=== PATIENT | female | born 1965 | race Caucasian/White ===

== ENCOUNTER 2017-10-22 09:09 | Emergency (ER) | payer OTHER ==
[2017-10-22 09:23] VITALS: BP 96/88
--- NOTE | 2017-10-22 10:06 | UC ---
Throat Pain/Nasal Ton HPI - HPI Summary HPI Summary: 52 y/o female PMHX DM type II presents to the urgent care c/o RT ear pain and RT kjaw pain with mild swelling that has worsen for the past 2 weeks 2016. Pt reports symptoms have worsen for the pst 2 days. Mild fever. She took Advil 800mg PO. Pain is 8/10 with swallowing and associated with decrease hearing. Pt denies cough, SOB, chest pain N/V/D, abdominal pain. - History of Current Complaint Chief Complaint: UCGeneralIllness Stated Complaint: SORE THROAT EAR PAIN Time Seen by Provider: 10/22/17 09:46 Hx Obtained From: Patient Hx Last Menstrual Period: 10/04/17 ?: No Onset/Duration: Gradual Onset, Lasting Weeks - 2 weeks, Still Present, Worse Since - 2 days ago Severity: Moderate Pain Intensity: 8 Pain Scale Used: 0-10 Numeric Cough: None Associated Signs & Symptoms: Positive: Other - Rt ear pain and RT side jaw pain. Negative: Sinus Discomfort, Nasal Discharge - Epiglottits Risk Factors Epiglottis Risk Factors: Negative - Allergies/Home Medications Allergies/Adverse Reactions: Allergies Allergy/AdvReac Type Severity Reaction Status Date / Time No Known Allergies Allergy Verified 10/22/17 09:24 PMH/Surg Hx/FS Hx/Imm Hx Previously Healthy: Yes Endocrine History: Diabetes Neurological History: Migraine Psychological History: Depression Other Cancer History: Skib cancer - Surgical History Surgical History: None - Family History Known Family History: Positive: Diabetes Family History: Breast cancer - Social History Occupation: Employed Full-time Lives: With Family Alcohol Use: None Substance Use Type: None Smoking Status (MU): Never Smoked Tobacco - Immunization History Most Recent Influenza Vaccination: 08/2017 Review of Systems Constitutional: Fever - subjective at home Skin: Negative Eyes: Negative ENT: Sore Throat, Ear Ache - RT ear pain, Other - RT jaw pain Respiratory: Negative Cardiovascular: Negative Gastrointestinal: Negative Genitourinary: Negative Motor: Negative Neurovascular: Negative Musculoskeletal: Negative Neurological: Negative Psychological: Negative Is Patient Immunocompromised?: No All Other Systems Reviewed And Are Negative: Yes Physical Exam Triage Information Reviewed: Yes Vital Signs: Initial Vital Signs Temp 98.9 F 10/22/17 09:19 Pulse 82 10/22/17 09:19 Resp 16 10/22/17 09:19 BP 96/88 10/22/17 09:19 Pulse Ox 98 10/22/17 09:19 - Additional Comments VITAL SIGNS: Reviewed. GENERAL: Patient is a well developed and nourished obese female who is sitting comfortable in the examining table. Patient is not in any acute respiratory distress. HEAD AND FACE: No signs of trauma. No ecchymosis, hematomas or skull depressions. No sinus tenderness. EYES: PERRLA, EOMI x 2, No injected conjunctiva, no nystagmus. No photophobia. EARS: Hearing grossly intact. RT Ear canals impacted with cerumen unable to visualize TM. LF external ear canal clear, LF TM WNL. MOUTH: Positive pharynx with erythema, no exudates, no palatal petechiae. No B/L tonsillar enlargement Uvula in midline. NECK: Supple, trachea is midline, Positive RT anterior cervical lymphadenopathy tender to palpation and swollen, no JVD, no carotid bruit, no c-spine tenderness , neck with full ROM. No meningeal signs, no Kernig's or brudzinskis signs. CHEST: Symmetric, no tenderness at palpation LUNGS: Clear to auscultation bilaterally. No wheezing or crackles. CVS: Regular rate and rhythm, S1 and S2 present, no murmurs or gallops appreciated. ABDOMEN: Soft, non-tender. No signs of distention. No rebound no guarding, and no masses palpated. Bowel sounds are normal. EXTREMITIES: FROM in all major joints, no edema, no cyanosis or clubbing. NEURO: Alert and oriented x 3. No acute neurological deficits. Speech is normal and follows commands. SKIN: Dry and warm Throat Pain/Nasal Course/Dx - Course Course Of Treatment: 52 y/o female PMHX DM type II presents to the urgent care c /o RT ear pain and RT kjaw pain with mild swelling that has worsen for the past 2 weeks 10/08/2017. Pt reports symptoms have worsen for the pst 2 days. Mild fever. She took Advil 800mg PO. Pain is 8/10 with swallowing and associated with decrease hearing. Pt denies cough, SOB, chest pain N/V/D, abdominal pain. Hx obtained. Pt with pharyngitis and RT EEC with cerumen impaction on examination. RT ear irrigation ordered. Performed by nurse. Pt tolerated well procedure. RT TM injected with erythema and mild purulent discharge. Pt with Otitis media. RApdi strep order: negative. PT Rx Amoxicillin PO and Ibuprofen PO for pain and swelling. PT Advised on hand washing to avoid spreading. Also advised to rest, eat well and avoid strenuous exercise. If symptoms do not improve or worsen advised to return to the urgent care or f/u with her PCP for further evaluation and treatment. PT understood and agreed - Differential Dx/Diagnosis Differential Diagnosis/HQI/PQRI: Influenza, Laryngitis, Mononucleosis, Otitis Media, Pharyngitis, Sinusitis, Tonsillitis, URI Provider Diagnoses: 1- Rt acute otitis media. 2-RT exteranl ear canal with cerumen impaction. 3-Pharyngitis Discharge - Discharge Plan Condition: Stable Disposition: HOME Prescriptions: Amoxicillin PO (*) [Amoxicillin 875 MG (*)] 875 mg PO BID #14 tab Ibuprofen TAB* [Motrin TAB* 800 MG] 800 mg PO Q6H PRN #20 tab PRN Reason: otalgia Patient Education Materials: Pharyngitis (ED), Otitis Media (ED) Referrals: Ara Austin MD [Primary Care Provider] - If Needed Additional Instructions: 1- Please take the full course of the antibiotic to avoid resistance. 2-Please take ibuprofen PO q6-8hrs prn as instructed after meals to alleviate pain and swelling. Increase fluid intake, eat well, rest and avoid strenuous exercise 3-If symptoms do not improve or worsen please return to the urgent care or f/u with your PCP for further evaluation and treatment.
== END 2017-10-22 10:26 | disposition home or self-care (01) ==
LOC: UCEAST 09:09
DX: H66.91 Otitis media, unspecified, right ear (principal); H61.21 Impacted cerumen, right ear; J02.9 Acute pharyngitis, unspecified; E11.9 Type 2 diabetes mellitus without complications; G43.909 Migraine, unspecified, not intractable, without status migrainosus; F32.9 Major depressive disorder, single episode, unspecified
CPT/HCPCS: 87651; 99213; G0463

== ENCOUNTER → 2018-03-08 08:05 | Day surgery (SDC) | payer OTHER ==
[~2018-03-08 08:05] MED LIST: Acetaminophen TAB* 325 MG PO PRN; Buffered Lidocaine 0.9% SYRIN* 5 ML/SYR SYRINGE ONE; Chloroprocaine 2%* 20 ML VIAL ONE; HYDROmorphone INJ* 1 MG/ML CARPUJECT SYRINGE IV PRN; Ketorolac INJ* 30 MG/ML 1 ML VIAL ONE; Lidocaine 2% PF * 5 ML VIAL ONE; Midazolam* 1 MG/ML 2 ML VIAL (2 MG) ONE; Naloxone* 0.4 MG/ML 1 ML VIAL IV PRN; Ondansetron INJ* 2 MG/ML VIAL IV PRN; Ondansetron INJ* 2 MG/ML VIAL ONE; PROCHLORPERAZINE INJ 5 MG/ML 2 ML VIAL IV PRN; Propofol* 500 MG/50 ML BTL ONE; Scopolamine 1.5 mg* PATCH TRANSDERM PRN; Scopolamine PATCH Remove* 1 NOTE MISC PATCH OFF ONE; diPHENhydraMINE IV* 50 MG/ML 1 ml VIAL (BENADRYL) IV PRN; fentaNYL* 50 MCG/ML 2 ML VIAL (100 MCG VIAL) IV PRN; fentaNYL* 50 MCG/ML 2 ML VIAL (100 MCG VIAL) ONE; oxyCODONE TAB* 5 MG TAB PO PRN; oxyCODONE/Acetamin 5/325 MG* TAB PO PRN
[2018-03-08 12:02] VITALS: BP 119/88
--- NOTE | 2018-03-08 12:10 | OP ---
OPERATIVE REPORT: DATE OF OPERATION: 03/08/18 DATE OF : 63 SURGEON: Cristiano Araujo MD ANESTHESIA: Spinal. PRE-OP DIAGNOSES: Menorrhagia, submucous fibroid. POST-OP DIAGNOSES: Menorrhagia, submucous fibroid. OPERATIVE PROCEDURE: D and C, MyoSure hysteroscopy, endometrial ablation. COMPLICATIONS: None. ESTIMATED BLOOD LOSS: Minimal. SPECIMEN: Includes endometrium and fibroid. FLUIDS: Include 170 cc deficit of saline. FINDINGS: On exam under anesthesia, the uterus had second-degree prolapse. Cervix, vagina, and vulva appeared normal. On hysteroscopy, there was a 1 x 1 cm submucous fibroid in the anterior uterine ca vity. Otherwise, the cavity appeared normal. DESCRIPTION OF PROCEDURE: The patient identified, procedure identified as a D and C, hysteroscopy, a nd endometrial ablation. The patient was taken to the operating room, prepped and draped in the usua l fashion in the dorsal lithotomy position under spinal anesthesia. Two single-tooth tenaculums were placed on the anterior lip of the cervix. The cervix was sounded to 10 cm. The cervical length was found to be 4 cm based on Hegar dilators making the cavity length 6. The above finding was noted. The MyoSure device was used to resect the submucous fibroid from the anterior uterine cavity. The ca vity seemed uniform after resection of the submucous fibroid. A sharp curette was inserted and sharp curettage performed. The NovaSure device was opened. The array was checked. The cavity width was f ound to be 4.6. A CO2 perforation test was performed. The device passed. The power setting was 152 . The device was enabled and NovaSure ablation took place for 62 seconds. At the end of the procedu re, good ablation was noted throughout the cavity. Good hemostasis was verified. All instruments we re removed from the vagina and the patient returned to recovery room in stable condition. All sponge , instrument counts were correct. [id number] #: [id number]
== END | disposition home or self-care (01) ==
LOC: OR 08:05
PROVIDERS: ATTEND Obstetrics & Gynecology
DX: N92.0 Excessive and frequent menstruation with regular cycle (principal); N84.0 Polyp of corpus uteri; Z85.828 Personal history of other malignant neoplasm of skin; E78.5 Hyperlipidemia, unspecified; Z68.29 Body mass index [BMI] 29.0-29.9, adult; E11.9 Type 2 diabetes mellitus without complications; Z79.84 Long term (current) use of oral hypoglycemic drugs
CPT/HCPCS: 88305; J1885; J2250; J2400; J2405; J2704; J3010

== ENCOUNTER 2018-11-28 16:30 | Emergency (ER) | payer OTHER ==
--- OUTSIDE RECORDS SUMMARY | 2018-11-28 16:35 | XMS REPORT ---
:1965 External Reference #:[id number] Author Organization [facility] Address [address] [place] [address] Phone [phone] Care Team Providers Name Role Phone Ara Austin M.D. 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 Primary Care Physician Unavailable Payers Type Date Identification Numbers Payment Subscriber Provider Health Maintenance Effective: Policy Number: [place] Pola Rivera [facility] ([facility]) 11/19/2016 [id number] [employer] PayID: [id number] [address] [place] [address] Problems Date Description Provider Status Onset: 10/02/2011 Migraine Dave Truong M.D. Active Onset: 02/26/2012 Hyperlipidemia Dave Truong M.D. Active Onset: 02/26/2012 Disorder of menstruation Dave Truong M.D. Active Onset: 09/26/2012 Mild recurrent major depression Dave Truong M.D. Active Onset: 11/26/2018 Anxiety state Ara Austin M.D. Active Onset: 11/26/2018 Type 2 diabetes mellitus Ara Austin M.D. Active Onset: 11/26/2018 Obstructive sleep apnea syndrome Ara Austin M.D. Active Onset: 11/26/2018 Obesity Ara Austin M.D. Active Onset: 02/26/2012 Impaired fasting glycaemia Dave Truong M.D. Resolved Resolved: 12/11/2017 Onset: 12/11/2017 Type II diabetes mellitus uncontrolled [place] Alexandre Resolved Resolved: 11/26/2018 Onset: 02/26/2012 Chest pain Dave Truong M.D. Resolved Resolved: 11/26/2018 Family History Date Family Member(s) Problem(s) Comments Father Congestive Heart Failure (CHF) Father due to COPD () Father CHF, Valve replacement , Migraines Mother Diabetes Mellitus, II Mother Ovarian Cancer Mother DM, First Daughter Migraines First Sister Breast Cancer BRCA neg First Sister Breast cancer in her late 40s, in 2013 had ovarian cancer and a Deep Venous Thrombophlebitis in her leg in Jul, 2014. 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 bedtime Metformin HCL 02/10/ Active Tablets ER 500mg 90tabs Take 1 E11.65 Ban ER 2014 24HR Tablet By Clif Crowder In SOFTWARE QUALITY ANALYST The Evening Janumet 10/26/ Active Tablets 50-500mg 60tabs Take One E11.65 Ban 2014 Tablet By Lakesha Mouth SOFTWARE QUALITY ANALYST Twice Daily Topiramate 07/24/ Active Tablets 25mg take as G43.909 [facility] 2013 directed Medicine 200mg [facility] Citalopram 07/24/ Active Tablets 20mg 90tabs Take One F33.0 Ban Hydrobromide 2013 Tablet By Lakesha Mouth SOFTWARE QUALITY ANALYST Once Daily Ibuprofen 01/06/ Active Tablets 800mg 90tabs take one G43.909 Ban 2013 tablet by Lakesha mouth SOFTWARE QUALITY ANALYST every 8 to 12 hours as needed with food Relpax 03/10/ Active Tablets 40mg 36tabs take one G43.909 Ban 2008 by mouth Lakesha, as SOFTWARE QUALITY ANALYST directed; may repeat in 2 hours Jose De Jesus Mirtazapine 11/ Hx Tablets 15mg 90tabs take one G47.00 Sammi C. 2018 - by mouth Joseluis, 11/26/ at [employer] 2019 bedtime Mirtazapine 09/18/ Hx Tablets 15mg 30tabs take one G47.00 Sammi C. 2018 - by mouth Joseluis, 10/18/ at [employer] 2018 bedtime Zolpidem 10/ Hx Tablets 10mg 30tabs take 1 by G47.00 Sammi C. Tartrate 2018 - mouth 1 Joseluis, 10/18/ hour [employer] 2017 before bedtime Trazodone HCL 06/20/ Hx Tablets 50mg 60tabs take 1 to G47.09 Ban 2017 - 3 tablets Lakesha, 06/26/ by mouth SOFTWARE QUALITY ANALYST 2018 at bedtime as needed for sleep Note No Work Hx Pola was G47.09 Ban 2017 - seen by Lakesha, 09/18/ tn today [facility] 2017 for illness and may not return to work until Sunday, 8\\6\\18 Zolpidem 08/26/ Hx Tablets 10mg 30tabs Take 1 Ban Tartrate 2016 - Tablet By Lakesha, 06/20/ Mouth AT [facility] 2018 Bedtime as Needed For Sleep Max/Daily 1 Note Due To Pola has [facility] 2016 - been out Lakesha, 02/26/ of work [facility] 2017 due to illness since \\ and may not return until Sunday, 10\\\\17 Lunesta 08/23/ Hx Tablets 3mg 30tabs 1 by G47.09 Ban 2016 - mouth Lakesha, 08/26/ every SOFTWARE QUALITY ANALYST 2016 night at bedtime Note For Work Hx Pola was G43.909 Ban 2016 - seen by Lakesha, 08/24/ tn today [facility] 2016 for illness, has been out of work since \\\\17 and may not return to work until Sunday, 1\\16\\17 Tramadol HCL 11/29/ Hx Tablets 50mg 30tabs 1-2 every G43.909 Ban 2016 - 12h as Lakesha, 08/24/ needed SOFTWARE QUALITY ANALYST 2017 pain Note For Work 04/28/ Hx Pola was G43.909 Ban 2015 - out of Lakesha, 11/29/ work [employer] QUAL[employer] ANALYST 2017 since 6\\8\\16 due to migraine headache, may return to work 6\\13\\16. Doxycycline 04/28/ Hx Capsules 100mg 60caps take 1 S30.861A Ban Hyclate 2015 - capsule Lakesha, 11/29/ by mouth SOFTWARE QUALITY ANALYST 2016 two times daily with food for 30 days Pravastatin 09/08/ Hx Tablets 40mg 90tabs Take 1 Ban Sodium 2014 - Tablet AT Lakesha, 08/24/ Bedtime SOFTWARE QUALITY ANALYST 2016 Amitriptyline 07/24/ Hx Tablets 25mg take 4 346.90 Family HCL 2012 - tablets Medicine 10/26/ by mouth Associates 2013 at [facility] bedtime Note Due To 07/24/ Hx Pola 346.90 [facility] Issues 2012 - missed 3d Lakesha, 10/26/ of work SOFTWARE QUALITY ANALYST 2013 this week due to migraine headache and may return Sunday, 9\\6\\13. Citalopram 05/07/ Hx Tablets 40mg 90tabs 1 po qd 296.31 Ban Hydrobromide 2012 - Lakesha, 07/24/ SOFTWARE QUALITY ANALYST 2012 Note Due To Hx Pola has 346.90 [facility] Issues 2012 - missed Lakesha, 07/24/ work SOFTWARE QUALITY ANALYST 2012 6\\17, 6\\18 and today 6\\19\\13 due to migraine headaches , may return to work tomorrow, 6\\20\\13 Cymbalta 03/17/ Hx Caps DR 60mg 90caps 1 po qd 726.72 Ban 2012 - Part Lakesha, SOFTWARE QUALITY ANALYST 2012 Cymbalta 03/17/ Hx Caps DR 60mg 2 po qd 726.72 Ban 2012 - Part Lakesha, SOFTWARE QUALITY ANALYST 2012 Cymbalta 03/17/ Hx Caps DR 60mg 90caps 1 po qd 726.72 Ban 2012 - Part Lakesha, SOFTWARE QUALITY ANALYST 2012 296.31 Physical Therapy 01/06/2013 - Hx evaluate and 726.72 Ban 03/17/2013 treat elbow Lakesha, SOFTWARE QUALITY ANALYST and tibial tendonitis Voltaren 01/06/2013 - Hx Gel 1% 100gm apply to 726.72 Ban 07/24/2013 painful area [place] Crowder tid Cymbalta 01/06/2013 - Hx Caps DR 30 samples 1 po qd 726.72 Ban 03/17/2013 Part mg [place] Crowder Riboflavin 09/26/2012 - Hx Capsules 10 120caps four pills G43.909 Acosta A. 08/24/2017 0m po daily Otto Truong g Co Q-10 Maximum 09/26/2012 - Hx Capsules 40 30caps 1 po qd G43.909 Acosta A. Strength 08/24/2017 0m Otto Truong g Pravastatin 09/26/2012 - Hx Tablets 40 90tabs take 1 272.4 [facility] Sodium 03/16/2015 mg tablet at [place] Crowder bedtime Azithromycin 08/12/2012 - Hx Tablets 25 6tabs take 2 786.2 Ban 09/26/2012 0m tablets by [place] Crowder g mouth today then take 1 tablet daily for next 4 days Note Due To 08/12/2012 - Hx Pola was 786.2 [facility] Health Issues 01/06/2013 seen by [place] Olson today for illness and may not return to work until Sunday, 9\\26\\12 Pantoprazole 02/26/2012 - Hx Tablets 20 90tabs 1 po qd 786.50 Dave Dimas Sodium 09/26/2012 mg Otto Truong Pravastatin 02/26/2012 - Hx Tablets 20 90tabs Take 1 272.4 Dave Dimas Sodium 09/26/2012 mg Tablet Daily Otto Truong Metformin HCL ER 02/26/2012 - Hx Tablets ER 50 90tabs Take 1 790.21 Ban 10/26/2014 24HR 0m Tablet Daily [place] Crowder g In The Morning Citalopram 12/20/2011 - Hx Tablets 20 90tabs 1 po qd 300.00 Dave Dimas Hydrobromide 01/07/2013 mg Otto Truong Amoxicillin/Clav 10/02/2011 - Hx Tablets 50 20tabs 1 po bid 473.1 Dave Dimas ulanate 12/20/2011 0- Otto Truong Potassium 12 5m g Prednisone 10/02/2011 - Hx Tablets 10 30tabs 2 bid x 473.1 Acosta A. 12/20/2011 mg 3days, then Otto Truong 3 qd x 3 days, then 1 bid x 3 days then 1 qd x 3 Klonopin 07/17/2011 - Hx Tablets 0. 60tabs 1 -2 qhs prn 780.52 Ban 07/24/2013 5m [place] Crowder g Azithromycin 02/09/2011 - Hx Tablets 25 6tabs take 2 466.0 Ban 07/17/2011 0m tablets by [place] Crowder mouth today then take 1 tablet daily for next 4 days Robitussin A-C 02/09/2011 - Hx 120ml 1-2 tsp po 466.0 Ban 07/17/2011 q4h prn [place] Crowder cough Amitriptyline 01/18/2011 - Hx Tablets 50 1 po q hs Family HCL 07/17/2011 [facility] Physical Therapy 09/12/2010 - Hx Evaluate and 719.45 Kiley Crocker 11/14/2010 treat Otto Lombardi pelvic pain, pelvic shear Citalopram 07/02/2010 - Hx Tabs 10 90tabs take 3 300.00 Ban Hydrobromide 12/20/2011 mg tablets once [place] Crowder A day Lunesta 12/09/2009 - Hx Tablets 3m 30tabs 1 po qhs 780.52 Ban 08/24/2010 g [place] Crowder Nortriptyline 09/08/2009 - Hx Capsules 25 1 po qhs 346.90 Family HCL 12/09/2009 [facility] Celexa 09/08/2009 - Hx Tablets 10 90tabs 3 po qd Ban 07/02/2010 mg [place] Crowder Zofran 03/10/2009 - Hx Tablets 4m 10tabs 1 po q 24 346.90 Arabella M. 04/19/2009 g hours prximena Bruce M.D. nausea Naprosyn 03/10/2009 - Hx Tablets 50 10tabs 1 po bid 346.90 Arabella M. 04/19/2009 0m Otto Bruce g Ambien CR 03/10/2009 - Hx Tablets ER 6. 60tabs 1 or 2 prn 780.52 Arabella M. 09/08/2009 25 insomnia Otto Bruce mg Ambien 01/28/2009 - Hx Tablets 10 30tabs 1 po qhs prn 780.52 Ban 09/08/2009 mg sleep [place] Crowder Penicillin V 01/19/2009 - Hx Tablets 50 one tab po Unknown Potassium 01/22/2009 0m tid for ten g days Phentermine HCL - Hx Capsules 30 1 PO qd Unknown 09/08/2009 mg Zocor - Hx Tablets 20 30tabs 1 po qhs Arabella Harris 12/09/2009 mg Otto Bruce Celexa - Hx Tablets 20 30tabs 1 po qd Arabella Mcintosh 09/08/2009 mg Otto Bruce Soma - Hx Tablets 35 1 po qid prn Unknown 12/09/2009 0m g Amitriptyline - Hx Tablets 30 1 PO QHS And Unknown 01/18/2011 Mm Increase To g 2 PO QHS as Directed Promethazine - Hx Tablets 25 one tab po Unknown 07/17/2011 mg every 6 hours prn nausea Amitriptyline - Hx Tablets 50 90tabs take 1 Ban HCL 07/24/2013 mg tablet daily [place] Crowder at bedtime Zolpidem - Hx Tablets 10 30tabs Take 1 Ban Tartrate 09/18/2018 mg Tablet By [place] Crowder Mouth AT Bedtime as Needed For Sleep (Max 1 Tablet Daily) Immunizations CPT Code Status Date Vaccine Lot # [id number] Given 10/02/2011 Tdap Tetanus, W Pertussis [id number] Vital Signs Date Vital Result Comment 11/26/2018 BP Systolic 132 mmHg BP Diastolic 68 mmHg Heart Rate 88 /min Body Temperature 98.2 F Respiratory Rate 17 /min Height 67.5 inches 5'7.50" Weight 233.00 lb BMI (Body Mass Index) 36.0 kg/m2 10/18/2018 BP Systolic 116 mmHg BP Diastolic 78 mmHg Heart Rate 80 /min Body Temperature 98.1 F Respiratory Rate 16 /min Height 67.5 inches 5'7.50" Weight 217.00 lb BMI (Body Mass Index) 33.5 kg/m2 09/18/2018 BP Systolic 120 mmHg BP Diastolic 78 mmHg Heart Rate 64 /min Body Temperature 98.2 F Respiratory Rate 17 /min Height 67.5 inches 5'7.50" Weight 207.00 lb BMI (Body Mass Index) 31.9 kg/m2 06/20/2018 BP Systolic 104 mmHg BP Diastolic 66 mmHg Heart Rate 92 /min Body Temperature 98.4 F Height 67.5 inches 5'7.50" Weight 201.00 lb BMI (Body Mass Index) 31.0 kg/m2 02/27/2018 BP Systolic 94 mmHg BP Diastolic 58 mmHg Heart Rate 76 /min Body Temperature 98.0 F Height 67.5 inches 5'7.50" Weight 203.00 lb BMI (Body Mass Index) 31.3 kg/m2 08/24/2017 BP Systolic 110 mmHg BP Diastolic 70 mmHg Heart Rate 56 /min Body Temperature 97.9 F Respiratory Rate 16 /min Height 67.5 inches 5'7.50" Weight 220.38 lb BMI (Body Mass Index) 34.0 kg/m2 11/29/2016 BP Systolic 110 mmHg BP Diastolic 60 mmHg Heart Rate 76 /min Body Temperature 98.5 F Respiratory Rate 16 /min Height 67.5 inches 5'7.50" Weight 227.12 lb BMI (Body Mass Index) 35.0 kg/m2 04/28/2016 BP Systolic 124 mmHg BP Diastolic 78 mmHg Heart Rate 80 /min Body Temperature 97.5 F Respiratory Rate 18 /min Height 67.5 inches 5'7.50" Weight 225.00 lb BMI (Body Mass Index) 34.7 kg/m2 02/10/2015 BP Systolic 120 mmHg BP Diastolic 80 mmHg Heart Rate 76 /min Body Temperature 99.0 F Respiratory Rate 18 /min Height 67.5 inches 5'7.50" Weight 219.00 lb BMI (Body Mass Index) 33.8 kg/m2 10/26/2014 BP Systolic 118 mmHg BP Diastolic 78 mmHg Heart Rate 90 /min Body Temperature 98.7 F Respiratory Rate 16 /min Height 67.5 inches 5'7.50" Weight 226.50 lb BMI (Body Mass Index) 34.9 kg/m2 07/24/2013 BP Systolic 124 mmHg BP Diastolic 80 mmHg Heart Rate 66 /min Body Temperature 98.6 F Respiratory Rate 18 /min Height 67.5 inches 5'7.50" Weight 230.00 lb BMI (Body Mass Index) 35.5 kg/m2 05/07/2013 BP Systolic 118 mmHg BP Diastolic 72 mmHg Heart Rate 90 /min Body Temperature 97.1 F Respiratory Rate 16 /min Height 67.5 inches 5'7.50" Weight 228.12 lb BMI (Body Mass Index) 35.2 kg/m2 03/17/2013 BP Systolic 120 mmHg BP Diastolic 70 mmHg Heart Rate 80 /min Body Temperature 99.9 F Respiratory Rate 16 /min Height 67.5 inches 5'7.50" Weight 224.00 lb BMI (Body Mass Index) 34.6 kg/m2 01/06/2013 BP Systolic 110 mmHg BP Diastolic 70 mmHg Heart Rate 72 /min Body Temperature 98.7 F Respiratory Rate 16 /min Height 67.5 inches 5'7.50" Weight 218.00 lb BMI (Body Mass Index) 33.6 kg/m2 09/26/2012 BP Systolic 114 mmHg BP Diastolic 60 mmHg Heart Rate 80 /min Height 67.5 inches 5'7.50" Weight 219.00 lb BMI (Body Mass Index) 33.8 kg/m2 08/12/2012 BP Systolic 110 mmHg BP Diastolic 70 mmHg Heart Rate 72 /min Body Temperature 98.7 F Height 67.5 inches 5'7.50" Weight 218.00 lb BMI (Body Mass Index) 33.6 kg/m2 07/29/2012 BP Systolic 110 mmHg BP Diastolic 70 mmHg Heart Rate 80 /min Body Temperature 98.6 F Height 67.5 inches 5'7.50" Weight 214.00 lb BMI (Body Mass Index) 33.0 kg/m2 04/17/2012 BP Systolic 108 mmHg BP Diastolic 78 mmHg Heart Rate 72 /min Body Temperature 97.8 F Height 67.5 inches 5'7.50" Weight 220.00 lb BMI (Body Mass Index) 33.9 kg/m2 03/27/2012 BP Systolic 114 mmHg BP Diastolic 66 mmHg Heart Rate 72 /min Body Temperature 99.2 F Height 67.5 inches 5'7.50" Weight 214.00 lb BMI (Body Mass Index) 33.0 kg/m2 02/26/2012 BP Systolic 106 mmHg BP Diastolic 80 mmHg Heart Rate 72 /min Body Temperature 97.5 F Height 67.5 inches 5'7.50" Weight 215.00 lb BMI (Body Mass Index) 33.2 kg/m2 12/20/2011 BP Systolic 112 mmHg BP Diastolic 82 mmHg Heart Rate 88 /min Body Temperature 97.9 F Height 67.5 inches 5'7.50" Weight 216.00 lb BMI (Body Mass Index) 33.3 kg/m2 10/02/2011 BP Systolic 110 mmHg BP Diastolic 66 mmHg Heart Rate 72 /min Body Temperature 98.4 F Height 67.5 inches 5'7.50" Weight 209.00 lb BMI (Body Mass Index) 32.2 kg/m2 08/17/2011 BP Systolic 130 mmHg BP Diastolic 90 mmHg Heart Rate 72 /min Body Temperature 98.1 F Respiratory Rate 15 /min Height 67.5 inches 5'7.50" Weight 212.00 lb BMI (Body Mass Index) 32.7 kg/m2 07/17/2011 BP Systolic 110 mmHg BP Diastolic 72 mmHg Heart Rate 88 /min Height 67.5 inches 5'7.50" Weight 211.00 lb BMI (Body Mass Index) 32.6 kg/m2 02/09/2011 BP Systolic 120 mmHg BP Diastolic 80 mmHg Heart Rate 80 /min Body Temperature 99.4 F Height 67.5 inches 5'7.50" Weight 210.00 lb BMI (Body Mass Index) 32.4 kg/m2 01/18/2011 BP Systolic 120 mmHg BP Diastolic 66 mmHg Heart Rate 66 /min Body Temperature 98.2 F Height 67.5 inches 5'7.50" Weight 210.00 lb BMI (Body Mass Index) 32.4 kg/m2 11/14/2010 BP Systolic 116 mmHg BP Diastolic 78 mmHg Heart Rate 68 /min Body Temperature 99.3 F Respiratory Rate 16 /min Height 67.5 inches 5'7.50" Weight 210.00 lb BMI (Body Mass Index) 32.4 kg/m2 09/12/2010 BP Systolic 120 mmHg BP Diastolic 70 mmHg Heart Rate 72 /min Body Temperature 98.6 F Height 67.5 inches 5'7.50" Weight 214.00 lb BMI (Body Mass Index) 33.0 kg/m2 08/24/2010 BP Systolic 110 mmHg BP Diastolic 80 mmHg Heart Rate 64 /min Body Temperature 99.0 F Height 67.5 inches 5'7.50" Weight 212.00 lb BMI (Body Mass Index) 32.7 kg/m2 12/09/2009 BP Systolic 112 mmHg BP Diastolic 72 mmHg Heart Rate 80 /min Weight 200.00 lb 09/08/2009 BP Systolic 114 mmHg BP Diastolic 76 mmHg Heart Rate 90 /min Body Temperature 99.2 F Height 67.5 inches 5'7.50" Weight 200.00 lb BMI (Body Mass Index) 30.9 kg/m2 03/18/2009 BP Systolic 100 mmHg BP Diastolic 64 mmHg Heart Rate 68 /min Height 67.5 inches 5'7.50" Weight 190.00 lb BMI (Body Mass Index) 29.3 kg/m2 03/10/2009 BP Systolic 96 mmHg BP Diastolic 60 mmHg Heart Rate 76 /min Body Temperature 98.9 F Respiratory Rate 14 /min Weight 185.00 lb 01/28/2009 BP Systolic 118 mmHg BP Diastolic 80 mmHg Heart Rate 68 /min Height 67.5 inches 5'7.50" Weight 190.00 lb BMI (Body Mass Index) 29.3 kg/m2 Results Test Date Test Result H/L Range Note Laboratory test 09/18/2018 Hemoglobin A1c 5.4 % 4.1-5.7 finding ([facility]) Laboratory test 03/08/2018 Point of Care 98 mg/dL 70-100 1 finding Glucose Laboratory test 01/31/2018 Surgical Pathology SEE RESULT BELOW 2 finding Laboratory test 10/22/2017 Rapid Strep Negative Negative 3 finding Molecular Laboratory test 04/28/2016 Hemoglobin A1c 6.6 % High 4.1-5.7 finding ([facility]) Laboratory test 02/10/2015 Cytology RUN DATE: finding <SEE NOTE> Urine Culture And 02/10/2015 Urine Culture (SEE NOTE) 5 Sensitivities Comprehensive 02/10/2015 Sodium 137 mEq/L 134-149 Metabolic Prof Potassium 4.2 mEq/L 3.6-5.5 Chloride 103 mEq/L 94-112 Carbon Dioxide 21 mEq/L 21-32 Glucose 96 mg/dL 70-105 BUN 11 mg/dL 6-26 Creatinine 0.9 mg/dL 0.6-1.4 BUN/Creat Ratio 12.2 CALC 8.0-36.0 Calcium 9.1 mg/dL 8.6-10.2 Total Protein 7.2 g/dL 6.4-8.3 Albumin 4.0 g/dL 3.8-5.5 Globulin 3.2 g/dL 2.0-4.8 A/G Ratio 1.3 CALC 0.6-2.3 Alk. Phosphatase 62 U/L 30-110 Alt (SGPT) 23 U/L 7-35 Ast (Sgot) 20 U/L 5-34 Total Bilirubin 0.3 mg/dL 0.2-1.3 Lipid Profile 02/10/2015 Cholesterol 211 mg/dL High 120-200 Triglycerides 115 mg/dL 30-200 HDL Cholesterol 44 mg/dL 30-85 LDL (Calculated) 144 CALC High 0-129 VLDL Cholesterol 23 mg/dL 0-50 HDL Risk Factor 4.8 CALC High 0.0-4.4 Laboratory test finding 02/10/2015 Free T4 0.82 ng/dL 0.75-1.54 TSH 1.64 mIU/L 0.50-6.00 Complete Blood Count 02/10/2015 WBC 8.4 x10^3/UL 3.6-9.6 RBC 4.51 x10^6/UL 3.90-5.70 HGB 12.7 g/dL 12.1-17.2 HCT 38 % 36-50 MCV 84.0 fL 82.2-97.4 MCH 28.2 pg 27.6-33.3 MCHC 33.7 g/dL 33.0-35.5 RDW 13.5 % 11.6-13.7 PLT 333 x10^3/UL 150-400 MPV 7.6 fL 7.4-10.4 Gran # 6.4 x10^3/UL 1.5-7.2 Lymph# 1.8 x10^3/UL 0.7-4.9 Perry# 0.2 x10^3/UL 0.1-0.9 Gran % 74.6 % 42.2-75.2 Lymph % 22.6 % 20.5-51.1 Perry% 2.8 % 1.7-9.3 Laboratory test finding 02/10/2015 Hemoglobin A1c (a/[facility],CX) 6.1% % High 4.1-5.7 Ua - Micro (a) 02/10/2015 Appearance CLEAR Color YELLOW Glucose, Urine ([facility]ma/CMC/CTX) NEG Bilirubin NEG Ketones NEG SP Grav 1.010 Blood TRACE-LYSED PH 7.0 Protein NEG Urobil 0.2 Nitrite NEG Leukocytes ([facility]ma/CMC/Centrex) LARGE Hyaline - /Lpf Granular - /Lpf WBC (Fma,Centrex) 20-30 RBC 2-3 Mucus - /Lpf Epith OCC /Lpf Bacteria 2+ /Hpf Amorphous - /Lpf Crystals, Fluid ([facility]ma/CMC/CTX) - Z#Comments - Laboratory test finding 10/26/2014 Hemoglobin A1c 7.0 % High 4.1-5.7 ([facility]/CMC,CX) Laboratory test finding 07/24/2013 Hemoglobin A1c 6.6 % High 4.1-5.7 ([facility]/CMC,CX) Lipid Profile 09/26/2012 Cholesterol 240 mg/dL High 120-200 HDL 45 mg/dL 30-85 Triglycerides 139 mg/dL 30-200 HDL Risk Factor 5.4 CALC High 0.0-4.4 LDL (Calculated) 167 CALC High 0-129 VLDL (Calculated) 28 mg/dL 0-50 Comprehensive Metabolic Prof 09/26/2012 Albumin 4.4 g/dL 3.8-5.5 Alk. Phos. 78 U/L 30-110 Alt (SGPT) 29 U/L 7-35 Ast (Sgot) 19 U/L 5-34 BUN 13 mg/dL 6-26 Calcium 8.6 mg/dL 8.6-10.2 Chloride 99 mEq/L 94-112 Creatinine 0.9 mg/dL 0.6-1.4 Carbon Dioxide 25 mEq/L 21-32 Glucose 94 mg/dL 70-105 Sodium 136 mEq/L 134-149 Total Bilirubin 0.2 mg/dL 0.2-1.3 Total Protein 7.1 g/dL 6.3-8.1 Potassium 4.2 mEq/L 3.6-5.5 Globulin 2.6 g/dL 2.0-4.8 A/G Ratio 1.7 Calc 0.6-2.2 BUN/Creat Ratio 14.2 Calc 8.0-36.0 Laboratory test finding 09/26/2012 Hemoglobin A1c 5.9 % High 4.1-5.7 ([facility]ma/CMC,CX) Comprehensive Metabolic 04/17/2012 Albumin 4.4 g/dL 3.8-5.5 Prof Alk. Phos. 67 U/L 30-110 Alt (SGPT) 41 U/L High 7-35 6 Ast (Sgot) 29 U/L 5-34 BUN 13 mg/dL 6-26 Calcium 9.1 mg/dL 8.6-10.2 Chloride 99 mEq/L 94-112 Creatinine 0.8 mg/dL 0.6-1.4 Carbon Dioxide 25 mEq/L 21-32 Glucose 113 mg/dL High 70-105 7 Sodium 140 mEq/L 134-149 Total Bilirubin 0.2 mg/dL 0.2-1.3 Total Protein 6.7 g/dL 6.3-8.1 Potassium 4.7 mEq/L 3.6-5.5 Globulin 2.3 g/dL 2.0-4.8 A/G Ratio 1.9 Calc 0.6-2.2 BUN/Creat Ratio 15.6 Calc 8.0-36.0 Lipid Profile 04/17/2012 Cholesterol 222 mg/dL High 120-200 HDL 47 mg/dL 30-85 Triglycerides 143 mg/dL 30-200 HDL Risk Factor 4.7 CALC High 0.0-4.0 LDL (Calculated) 146 CALC High 0-129 VLDL (Calculated) 29 mg/dL 0-50 Laboratory test finding 04/17/2012 Hemoglobin A1c 5.9 % High 4.1-5.7 (Fma/CMC,CX) Surgical Pathology 04/05/2012 Surgical Pathology 8 ---- <SEE NOTE> Laboratory test finding 02/26/2012 Troponin < 0.06 ng/ml Low 0.00-2.30 Comprehensive Metabolic 02/26/2012 Albumin 4.6 g/dL 3.8-5.5 Prof Alk. Phos. 85 U/L 30-110 Alt (SGPT) 27 U/L 7-35 Ast (Sgot) 21 U/L 5-34 BUN 17 mg/dL 6-26 Calcium 9.7 mg/dL 8.6-10.2 Chloride 99 mEq/L 94-112 Creatinine 0.9 mg/dL 0.6-1.4 Carbon Dioxide 24 mEq/L 21-32 Glucose 91 mg/dL 70-105 Sodium 141 mEq/L 134-149 Total Bilirubin 0.3 mg/dL 0.2-1.3 Total Protein 7.3 g/dL 6.3-8.1 Potassium 4.6 mEq/L 3.6-5.5 Globulin 2.6 g/dL 2.0-4.8 A/G Ratio 1.8 Calc 0.6-2.2 BUN/Creat Ratio 18.7 Calc 8.0-36.0 Laboratory test finding 02/26/2012 Amylase 45 U/L 20-105 CBC Electronic ([facility]ma) 02/26/2012 WBC 6.6 3.6-9.6 RBC 4.64 3.90-5.70 Hemoglobin ([facility]ma/CMC/CTX) 13.1 g/dL 12.1 - 17.2 Hematocrit ([facility]ma/CMC/CTX) 38.8 % 36.1 - 50.3 Platelets 352 10^3/ul 150-400 Lymph% 28.5 20.5-51.1 Mixed% 3.8 Neutrophils % 67.7 Mean Corpuscular Vol 84 82.2-97.4 Mean Corpuscular Hemoglobin 28.2 27.6-33.3 Mean Corpuscular Hemo Concen 33.7 32.0-36.0 RDW 12.3 11.6-13.7 Mean Platelet Volume 7.4 6.5-11.0 Testosterone Free & Weekly Bound 02/26/2012 Testosterone, Serum 28 ng/dL 8-48 9 Testost., % Free+Weakly Bound 16.3 % 3.0-18.0 9 Testost., F+W Bound 4.6 ng/dL 0.0-9.5 9 Laboratory test finding 02/26/2012 Prolactin 7.0 ng/ml 9, 10 Comprehensive Metabolic Prof 12/20/2011 Albumin 4.3 g/dL 3.8-5.5 Alk. Phos. 62 U/L 30-110 Alt (SGPT) 26 U/L 7-35 Ast (Sgot) 20 U/L 5-34 BUN 11 mg/dL 6-26 Calcium 8.7 mg/dL 8.6-10.2 Chloride 99 mEq/L 94-112 Creatinine 0.8 mg/dL 0.6-1.4 Carbon Dioxide 28 mEq/L 21-32 Glucose 91 mg/dL 70-105 Sodium 136 mEq/L 134-149 Total Bilirubin 0.5 mg/dL 0.2-1.3 Total Protein 6.9 g/dL 6.3-8.1 Potassium 3.9 mEq/L 3.6-5.5 Globulin 2.6 g/dL 2.0-4.8 A/G Ratio 1.6 Calc 0.6-2.2 BUN/Creat Ratio 13.4 Calc 8.0-36.0 Lipid Profile 12/20/2011 Cholesterol 267 mg/dL High 120-200 HDL 46 mg/dL 30-85 Triglycerides 110 mg/dL 30-200 HDL Risk Factor 5.8 CALC High 0.0-4.0 LDL (Calculated) 199 CALC High 0-129 VLDL (Calculated) 22 mg/dL 0-50 Laboratory test finding 12/20/2011 Hemoglobin A1c ([facility]/CMC,CX) 6.0 % High 4.1-5.7 CBC Electronic ([facility]) 12/20/2011 WBC 7.5 3.6-9.6 RBC 4.55 3.90-5.70 Hemoglobin (Fma/CMC/CTX) 13.1 g/dL 12.1 - 17.2 Hematocrit (Fma/CMC/CTX) 38.9 % 36.1 - 50.3 Platelets 346 10^3/ul 150-400 Lymph% 25.1 20.5-51.1 Mixed% 5.1 Neutrophils % 69.8 Mean Corpuscular Vol 86 82.2-97.4 Mean Corpuscular Hemoglobin 28.8 27.6-33.3 Mean Corpuscular Hemo Concen 33.7 32.0-36.0 RDW 12.5 11.6-13.7 Mean Platelet Volume 7.4 6.5-11.0 Laboratory test finding 12/20/2011 Thin Prep W/HPV(Lsil/RACHEL/Asc) SEE NOTE 11 Ua - Micro ([facility]) 12/20/2011 Appearance CLEAR Color YELLOW Glucose NEG Bilirubin NEG Ketones NEG SP Grav 1.015 Blood NEG PH 7.5 Protein NEG Urobil 0.2 Nitrite NEG Leukocytes (Fma/CMC/Centrex) NEG Hyaline - /Lpf Granular - /Lpf WBC (a,Centrex) 2-3 RBC 0-1 Mucus - /Lpf Epith MOD AMT /Lpf Bacteria - /Hpf Amorphous - /Lpf Crystals, Fluid (Fma/CMC/CTX) - Z#Comments - Laboratory test finding 11/14/2010 Thin Prep W/HPV(Lsil/RACHEL/Asc) SEE NOTE 12 Ua - Micro (a) 11/14/2010 Appearance CLEAR Color YELLOW Glucose NEG Bilirubin NEG Ketones TRACE SP Grav 1.020 Blood NEG PH 8.0 Protein NEG Urobil 0.2 Nitrite NEG Leukocytes (Fma/CMC/Centrex) TRACE Hyaline - /Lpf Granular - /Lpf WBC (Fma,Centrex) 3-5 RBC 1-2 Mucus - /Lpf Epith FEW /Lpf Bacteria RARE /Hpf Amorphous - /Lpf Crystals, Fluid (Fma/CMC/CTX) - Z#Comments - GFR, Calculated 03/18/2009 GFR (Calculated) >60 13, 14 Laboratory test 03/18/2009 TSH (Thyrotropin) 1.650 uIU/ml 0.350-5.500 13 finding Free T-3 3.6 pg/mL 1.8-4.2 13 T-4 Free 1.2 ng/dL 0.8-1.8 13 Lipid Profile 03/18/2009 Cholesterol, Total 199 mg/dL 120-200 13, 15 HDL Cholesterol 59 mg/dL 40-60 13 LDL Cholesterol, Calc. 126 mg/dL <130 13, 16 Triglycerides 70 mg/dL 13, 17 LDL/HDL Cholesterol 2.1 13, 18 Chol/HDL Cholesterol 3.4 13, 19 Comprehensive Metabolic 03/18/2009 Glucose 84 mg/dL 70-100 13 BUN 9 mg/dL 4-18 13 Creatinine, Serum 1.0 mg/dL 0.5-1.2 13 Sodium 138 mmol/L 136-146 13 Potassium 4.1 mmol/L 3.5-5.3 13 Chloride 103 mmol/L 98-110 13 Carbon Dioxide 25 mmol/L 20-32 13 Albumin 4.6 g/dL 3.5-4.7 13 Protein, Total 7.2 g/dL 6.4-8.3 13 Calcium 9.1 mg/dL 8.4-10.4 13 Alkaline Phosphatase 67 U/L 10-118 13 Sgot (Ast) 22 U/L 3-40 13 SGPT (Alt) 22 U/L 7-50 13 Bilirubin, Total 0.60 mg/dL 0.30-1.20 13 CBC 03/18/2009 WBC 7.4 x103 4.3-10.9 13 RBC 4.60 x106 3.80-5.30 13 Hemoglobin 13.2 g/dL 11.8-15.8 13 Hematocrit 40.0 % 35.0-47.0 13 MCV 87.0 fl 82.0-98.0 13 MCH 28.7 pg 27.5-33.5 13 MCHC 33.0 g/dL 32.0-36.0 13 RDW 13.8 % 11.5-14.5 13 Platelet Count 291 x103 130-400 13 MPV 10.9 fl High 6.5-10.5 13 Segmented Neutrophils 62.5 % 44.0-74.0 13 Lymphocytes 30.7 % 15.0-45.0 13 Monocytes 5.7 % 2.0-13.0 13 Eosinophils 0.8 % 0.0-6.0 13 Basophils 0.3 % 0.0-2.0 13 Neutrophil Absolute 4.6 x103 1.4-7.0 13 Lymphocytes Absolute 2.3 x103 1.0-3.4 13 Monocyte Absolute 0.4 x103 0.2-1.0 13 Eosinophil Absolute 0.1 x103 0.0-0.5 13 Basophil Absolute 0.0 x103 0.0-0.2 13 Ua - Micro (Fma) 03/18/2009 Appearance CLEAR Color YELLOW Glucose, Urine (Fma/CMC/CTX) - Bilirubin - Ketones - SP Grav 1.010 Blood - PH 7.0 Protein - Urobil 0.2EU/DL Nitrite - Leukocytes (Fma/CMC/Centrex) SMALL Hyaline - /Lpf Granular - /Lpf WBC (Fma,Centrex) 30-40 RBC 0-2 Mucus (Fma/CBC/Centrex) - /Lpf Epith MED /Lpf Bacteria 1+ /Hpf Amorphous (Fma/CMC/Centrex) - /Lpf Crystals, Fluid (Fma/CMC/CTX) - Laboratory test finding 03/18/2009 Thin Prep W/HPV SEE NOTE 20 HPV, High Risk Only Negative for hig <SEE NOTE> 21 1 [employer]: [id number] 2 SEE RESULT BELOW Name: POLA RIVERA : [address]: Cristiano Araujo MD Acct: [id number] Unit: [id number] AGE: 52 Location: [facility] Re01/31/18 SEX: F Status: REG REF SPEC: [id number] CHRIS: 01/31/18-[address] [facility] [address]: Cristiano Araujo MD REQ: [id number] RECD: 02/01/18-8 STATUS: DIVINA HERNÁNDEZ DR: Chema Friedman MD _ ORDERED: LEVEL 4 COMMENTS: [id number] FINAL DIAGNOSIS Uterus, endometrium, biopsy: -- Secretory endometrium. -- No evidence of hyperplasia or neoplasia identified. PRE-OPERATIVE DIAGNOSIS Dysfunctional uterine bleeding GROSS DESCRIPTION The specimen is received in formalin labeled, EM BX, and consists of a 1.3 x 1.3 x 0.2 cm aggregate of orozco irregular soft tissue fragments which is submitted entirely in one cassette. Signed (signature on file) Riley Abad MD 1353 END OF REPORT DEPARTMENT OF PATHOLOGY, [facility] [place], [place] [address] Riley Abad M.D. Director CLIA # [id number] [employer]: [id number] RUN DATE: 02/11/15 [facility] LAB LIVE PAGE 1 RUN TIME: 1326 [facility] [employer] [place], [place] [address] Specimen Inquiry Name: POLA RIVERA Galo : [address]: Ban Crowder NP Acct: [id number] Unit: [id number] AGE: 49 Location: [facility] Re02/10/15 SEX: F Status: REG REF SPEC: [id number] CHRIS: 02/10/15-[address] [facility] [address]: Ban Crowder NP REQ: [id number] RECD: 02/10/15 STATUS: SOUT _ ORDERED: IMAGE ANALYSIS FINAL DIAGNOSIS Negative for Intraepithelial lesion or Malignancy A. Ectocervical/Endocervical Specimen Adequacy: Satisfactory of evaluation Transformation zone component identified Patient Information: HPV: Thin Layer Pap Test w/reflex to high risk HPV RNA testing when ASCUS Actual Specimen Date: 02/10/15 Last Menstrual Date: 01/29/15 Spec Date if unknown: 12/2011 ?: N Post Menopausal?: N Hysterectomy?: N Previous Abnormal Pap Smears?:N Signed (signature on file) JERRY Zuluaga (ASCP) 02/11 1326 This Pap test was evaluated with the assistance of the Reach.lyPrep Test Imaging System. Due to cytologic findings at the molecular biologist microscope, comprehensive manual rescreening by a Seaming Machine Operator may be required. The Pap Smear is a screening test designed to aid in the detection of premalignant and malignant conditions of the uterine cervix. It is not a diagnostic procedure and should not be used as the sole means of detecting cervical cancer. Both false- positive and false- negative reports do occur. Depending on your risk status, a Pap smear should be obtained and evaluated every 1-3 years. END OF REPORT * ML=Testing performed at Main Lab DEPARTMENT OF PATHOLOGY, [facility] [place], [place] [address] Riley Abad M.D. Director [facility] # [id number] RUN DATE: 02/13/15 [facility] LAB LIVE PAGE 1 RUN TIME: 1133 [facility] [place], [place] [address] Specimen Inquiry Name: POLA RIVERA : [address]: Ban Crowder NP Acct: [id number] Unit: [id number] AGE: 49 Location: [facility] Re02/10/15 SEX: F Status: REG REF SPEC: [id number] CHRIS: 02/10/15-[address] [facility] [address]: Ban Crowder ASSOCIATE VICE PRESIDENT REQ: [id number] RECD: 02/10/15 STATUS: COMP _ SOURCE: URINE SPDESC: ORDERED: Urine Culture QUERIES: Provider Requisition # [id number] Procedure Result Verified Site Urine Culture Final 02/13/15- 1133 ML Organism 1 NORMAL DONG [place] Count 25-50,000 (Moderate) CFU/ML * ML - MAIN LAB (PSC1) . END OF REPORT * ML=Testing performed at Main Lab DEPARTMENT OF PATHOLOGY, [address] [place] [address] Riley Abad M.D. Director [facility] # [id number] RESULT GIOVANA'D 7 RESULT GIOVANA'D 8 --- RUN DATE: 04/08/12 [facility] NMI LIVE PAGE 1 RUN TIME: 1554 Specimen Inquiry RUN USER: INTERFACE -- Name: POLA RIVERA Status: REG REF Re04/05/12 Age/Sex: 47/F Unit#: [id number] Location: [facility] : [birth year] -- Specimen: [id number] [facility] Spec Date:04/05/12- [facility] Dr: Cristiano mims MD Spec Type: SURGICAL P Received:04/05/12-1226 Copies to: Dave eddy MD SPECIMEN 1) BIOPSY ESOPHAGUS 2) BIOPSY POLYP HEPATIC FLEXURE 3) BIOPSY CECAL POLYP HISTORY PRE-OP DIAGNOSIS: Rule out eosinophilic esophagitis POST-OP DIAGNOSIS: Esophagus-normal, no erosion/exuudate or stricture, bi opsied; stomach-normal,no hiatal hernia or ulcer; duodenum-normal. Colonoscopy-3 small polyp CLINICAL INFORMATION: Odynophagia/rectal bleeding GROSS DESCRIPTION 1) The specimen is received in formalin labelled Pola Rivera, Biopsy Esophagus, and consists of two fragments of white tissue each measuring 0.4 x 0.2 x 0.2 cm. Submitted entirely, one cassette labelled 1. 2) The specimen is received in formalin labelled Pola Sarah Yebois, Biopsy Hepatic Flexure, and consists of one fragment of yellow tissue measuring 0.4 x 0.2 x 0.2 cm. Submitted entirely, one cassette labelled 2. 3) The specimen is received in formalin labelled Pola Sarah Yebois, Biopsy Cecal Polyp, and consists of three fragments of yellow tissue each measuring 0.3 x 0.2 x 0.2 cm. Submitted entirely, one cassette labelled 3. DIAGNOSIS 1) Esophagus, biopsy: A. Superficial squamous mucosa, mild chronic inflammation and reactive epithelial changes B. No evidence of eosinophilic esophagitis noted. 2) Colon, hepatic flexure, biopsy: Hyperplastic polyp. 3) Colon, cecum, biopsy: Hyperplastic polyp. Signed Electronically by: RILEY ABAD MD 04/08/12 1546 -- DEPARTMENT OF PATHOLOGY, [address] [place] [address] [facility] Permit #[id number] Otto Sanchez M.D. Dam Operator Dir kaleigh -- 9 [address] 10 . FEMALES: Non : 2.8-29.2 : 9.7-208.5 Postmenopausal : 1.8-20.3 MALES:................: 2.1-17.7 . 11 Scicasts. DEPARTMENT OF PATHOLOGY or Extension [address] [employer] [facility] REPORT PATIENT: POLA RIVERA : 1965 AGE: 46 Y SEX: F ACCT: [id number] PROCEDURE DATE: 12/20/2011 DATE RECEIVED: 12/21/2011 REQUESTING PHYSICIAN: CHERRIE PAINTER LOCATION: [facility] Case No. [id number] PATIENT DATA: [id number] SPECIMEN SUBMITTED: * * (HPVII) THIN PREP W/HPV (LSIL/ASC/RACHEL) * * CERVICAL/ENDOCERVICAL RELEVANT HISTORY: LMP: 12/09/2011 Prev.normal: 1210 : 3 Para: 3 SPECIMEN ADEQUACY SATISFACTORY FOR EVALUATION, ENDOCERVICAL TRANSFORMATION ZONE COMPONENT PRESENT GENERAL CATEGORIZATION NEGATIVE FOR INTRAEPITHELIAL LESIONS OR MALIGNANCY RECOMMENDATIONS Thin Prep Pap tests are examined with an FDA approved location-guidance system. ADDITIONAL COPIES SENT TO: Screened/Rescreened Electronically Signed Sign Out Date/Time: by: by: JERRY GARZON(ASCP) 12/22/2011 12:15 The Pap smear is a screening test designed to aid in the detection of premalignant and malignant conditions of the uterine cervix. It is not a diagnostic procedure and should not be used as the sole means of detecting cervical cancer. Both false-positive and false-negative reports do occur. Performed @ [facility] [place] [address] [place] [address] 12 Scicasts. DEPARTMENT OF PATHOLOGY or Extension [address] [employer] CYT[employer] REPORT PATIENT: POLA RIVERA : 1965 AGE: 45 Y SEX: F ACCT: [id number] PROCEDURE DATE: 11/14/2010 DATE RECEIVED: 11/15/2010 REQUESTING PHYSICIAN: CHERRIE PAINTER LOCATION: [facility] Case No. [id number] PATIENT DATA: [id number] SPECIMEN SUBMITTED: * * (HPVII) THIN PREP W/HPV (LSIL/ASC/RACHEL) * * ENDOCERVICAL RELEVANT HISTORY: : 3 Prev.normal: 03/18/09 Para: 3 Comment: PM PREV THERAPY 1989 SPECIMEN ADEQUACY SATISFACTORY FOR EVALUATION, ENDOCERVICAL TRANSFORMATION ZONE COMPONENT PRESENT GENERAL CATEGORIZATION NEGATIVE FOR INTRAEPITHELIAL LESIONS OR MALIGNANCY ADDITIONAL COPIES SENT TO: Screened/Rescreened Electronically Signed Sign Out Date/Time: by: by: PHOEBE PATTERSON, 11/15/2010 12:33 CT(ASCP) Thin Prep Pap tests are examined with an FDA-approved location-guidance system (47215). Performed @ [facility] [place] [place] [address] 13 FASTING 14 mL/min/1.73m2 . Normal Function or Mild Renal Disease, if clinically at risk: >or=60 Moderately decreased: 30 - 59 Severely decreased: 15 - 29 Renal Failure: <15 . Please note that the MDRD equation requires an additional adjustment for -Americans (multiply the GFR result by 1.210). . Glomerular Filtration Rate (GFR) is estimated based on the MDRD equation, which assumes a steady state for creatinine (Deanna Int Med 139/2 137-149, 2003), as recommended by the National Kidney Disease Education Program in conjunction with the National Institutes of Health and the National Kidney Foundation. . Clinical conditions in which it may be necessary to measure GFR by using clearance methods include extremes of age and body size, severe malnutrition or obesity, diseases of skeletal muscle, paraplegia or quadriplegia, vegetarian diet, rapidly changing kidney function, and calculation of the dose of potentially toxic drugs that are excreted by the kidneys. 15 Cholesterol Risk Levels (NIH) Recommended: under 200 mg/dl Borderline : 200-239 mg/dl High Risk : Above 240 mg/dl 16 The National Cholesterol Education Program recommends the following ranges for LDL Cholesterol: Optimal under 100 mg/dl Near or above Optimal 100 - 129 mg/dl Borderline High 130 - 159 mg/dl High 160 - 189 mg/dl Very High above 190 mg/dl 17 Triglyceride Risk Levels: Normal : <150 mg/dl Borderline : 150-199 mg/dl High : 200-499 mg/dl Very High : >500 mg/dl 18 LDL/HDL Risk Ratio Levels MALE FEMALE 1/2 X Average 1.00 1.47 Average 3.55 3.22 2 X Average 6.25 5.03 3 X Average 7.99 6.14 19 CHOL/HDL Risk Ratio Levels MALE FEMALE 1/2 X Average 3.4 3.3 Average 5.0 4.4 2 X Average 9.5 7.0 3 X Average 24.0 11.0 20 Scicasts. DEPARTMENT OF PATHOLOGY or Extension [address] [employer] CY[employer] REPORT PATIENT: POLA LYNN : 1965 AGE: 44 Y SEX: F ACCT: [id number] PROCEDURE DATE: 03/18/2009 DATE RECEIVED: 03/22/2009 REQUESTING PHYSICIAN: SLOANE PAINTERF LOCATION: [facility] Case No. [id number] PATIENT DATA: [id number] SPECIMEN SUBMITTED: * * (HPVR) THINPREP W/HPV * * ENDOCERVICAL RELEVANT HISTORY: LMP: 02/24/2009 : 3 Para: 3 Prev.normal: 04/2007 Comment: PREVIOUS THERAPY: RADIATION 1989 SPECIMEN ADEQUACY SATISFACTORY FOR EVALUATION, ENDOCERVICAL TRANSFORMATION ZONE COMPONENT PRESENT GENERAL CATEGORIZATION NEGATIVE FOR INTRAEPITHELIAL LESIONS OR MALIGNANCY RECOMMENDATIONS Refer to separate report for HPV test results. ADDITIONAL COPIES SENT TO: Screened/Rescreened by: Electronically Signed by: JERRY ASTUDILLO(ASCP) Signed Date and Time: 2009 12:37 Thin Prep Pap tests are examined with an FDA-approved location-guidance system (21121). Performed @ [facility] [address] [place] [address] "" 21 Negative for high/intermediate risk HPV types 16/18/31/33/35/39/45/51/52/56/58/59/68 Test performed by Hybrid capture Procedures Date CPT Code Description Status Comment 09/18/2018 01510 Finger Or Heel Stick Completed 11/19/2017 Mammogram Completed [place] 04/28/2016 95617 Finger Or Heel Stick Completed 10/26/2014 04252 Finger Or Heel Stick Completed 07/24/2013 31555 Finger Or Heel Stick Completed 04/05/2012 Colonoscopy Completed 02/26/2012 68801 Electrocardiogram Complete Completed Encounters Type Date Location Provider CPT E/M Dx Office Visit 10/18/2018 9:00a [facility] Sammi Smith Joseluis, ASSOCIATE VICE PRESIDENT 38320 G47.09 F41.9 Office Visit 09/18/2018 10:00a [facility] Sammi Huggins, ASSOCIATE VICE PRESIDENT 96046 G43.111 G47.00 F41.9 E11.65 Office Visit 06/20/2018 2:30p [facility] Ban Mossr, SOFTWARE QUALITY ANALYST 31615 G47.09 Office Visit 02/27/2018 2:15p Main Office Banmino NairLakesha, SOFTWARE QUALITY ANALYST 90876 M54.89 Office Visit 08/24/2017 11:30a Main Office Banmino NairLakesha, SOFTWARE QUALITY ANALYST 68165 G43.909 G47.09 Office Visit 11/29/2016 3:45p Main Office Ban Lakesha, SOFTWARE QUALITY ANALYST 61046 G43.909 M25.542 Office Visit 04/28/2016 11:30a Main Office Banmino NairLakesha, SOFTWARE QUALITY ANALYST 89433 G43.909 S30.861A E11.65 W57.xxxA Office Visit 02/10/2015 10:00a Main Office Banmino NairLakesha, SOFTWARE QUALITY ANALYST 08758 V72.31 250.02 791.7 V70.0 Office Visit 10/26/2014 2:30p Main Office Banmino NairLakesha, SOFTWARE QUALITY ANALYST 14792 250.02 296.31 272.4 Office Visit 07/24/2013 11:30a [facility] Banmino NairLakesha, SOFTWARE QUALITY ANALYST 41809 346.90 790.21 296.31 Office Visit 05/07/2013 11:30a Main Office Ban Lakesha, SOFTWARE QUALITY ANALYST 93901 346.90 296.31 Office Visit 03/17/2013 4:00p Main Office Ban Lakesha, SOFTWARE QUALITY ANALYST 79268 346.90 272.4 296.31 Office Visit 01/06/2013 6:45p Main Office Ban Lakesha, SOFTWARE QUALITY ANALYST 98749 726.72 Office Visit 09/26/2012 2:00p Main Office Dave Truong M.D. 74703 790.21 346.90 272.4 626.9 296.31 Office Visit 08/12/2012 6:15p Main Office Ban Lakesha, SOFTWARE QUALITY ANALYST 72125 786.2 Office Visit 07/29/2012 1:45p Main Office Ban Mossr, SOFTWARE QUALITY ANALYST 30791 346.90 Office Visit 04/17/2012 10:20a [facility] Dave Truong M.D. 61653 790.21 786.50 272.4 Office Visit 03/27/2012 9:40a [facility] Dave Truong M.D. 46304 786.50 272.4 790.21 Office Visit 02/26/2012 11:20a [facility] Dave Truong M.D. 17241 786.50 272.4 790.21 626.9 346.90 Office Visit 12/20/2011 11:15a [facility] Ban Mossr, [facility] 15488 V72.31 V18.0 272.4 791.7 Office Visit 10/02/2011 1:20p [facility] Dave Truong M.D. 09923 473.1 346.90 379.90 V06.5 Office Visit 08/17/2011 2:15p [facility] Banmino NairLakesha, [facility] 55463 346.90 Office Visit 07/17/2011 4:00p Main Office Banmino NairLakesha, SOFTWARE QUALITY ANALYST 08385 346.90 300.00 780.52 Office Visit 02/09/2011 1:30p [facility] Banmino NairLakesha, SOFTWARE QUALITY ANALYST 17120 466.0 Office Visit 01/18/2011 1:15p [facility] Banmino NairLakesha, SOFTWARE QUALITY ANALYST 87808 346.90 Office Visit 11/14/2010 10:00a [facility] Banmino NairLakesha, [facility] 96321 V72.31 Office Visit 09/12/2010 7:20p Main Office Kiley Lombardi M.D. 07796 626.9 719.45 Office Visit 08/24/2010 10:00a [facility] Banmino NairLakesha, SOFTWARE QUALITY ANALYST 15555 346.90 780.52 729.5 Office Visit 12/09/2009 11:30a [facility] Ban Lakesha, SOFTWARE QUALITY ANALYST 69330 346.90 780.52 477.9 Office Visit 09/08/2009 3:45p [facility] Ban Lakesha, SOFTWARE QUALITY ANALYST 64859 346.90 Office Visit 03/18/2009 10:00a [facility] Ban Crowder, [facility] 95096 V72.31 789.00 V18.0 791.7 Office Visit 03/10/2009 6:40p [facility] Office Arabella Bruce M.D. 19290 346.90 780.52 Office Visit 01/28/2009 9:30a [facility] Ban Crowder [facility] 79815 346.90 780.52 Plan of Care Future Appointment(s):02/26/2019 10:40 am - Ara Austin M.D. at [facility] Mmwlar1211/26/2018 - Ara Austin M.D.Z00.00 Encntr for general adult medical exam w/o abnormal findingsNew Labs:CBC Electronic-ALL Lab CompaniComp Metabolic- ALL Lab CompaniLipid Panel-ALL Lab CompaniesUa - Non Micro (Fma)TSH (Fma/CMC/ [facility])Comments:Encourage an active and healthy lifestyle with proper eating habits including fruits, vegetables, 6-8 glasses of water a day and monitoring portion size. Recommend 30 minutes of daily physical activityincluding walking, aerobic exercise, sports, yoga or dance. Any activity is better than no activity.Recommend routine eye and dental exams. Next physical is due in 1-2 years. Recommend annual influenza qqamtysdhrrO68.9 Anxiety disorder, unspecifiedComments:stable on regimen, call if symptoms worsen ; try 1/2 mirtazapine as neededFollow up:3moE11.9 Type 2 diabetes mellitus without complicationsNew Labs:CBC Electronic-ALL Lab CompaniComp Metabolic-ALL Lab CompaniLipid Panel-ALL Lab CompaniesTSH (Fma/CMC/[facility])Hemoglobin A1c (Fma) Microalb, Random (Fma/CMC/CTX)Free T4 (Fma/[facility])Comments:Recommend yearly diabetic eye and foot exams, and check on blood pressure periodically. Goal blood sugar is less than 140 in the morning or A1c less than 7. Recommend monitoring portion size, decreased carbohydrate intake (breads, pasta, rice, candy, desserts, and sweetened beverages/alcohol) and routine daily exercise. discussed restarting statin for Diabetes Mellitus rec, defers lqdnkX60.909 Migraine, unsp, not intractable, without status migrainosusComments:follow with xeinqX40.33 Obstructive sleep apnea (adult) (pediatric)Comments:wears CPAP nightly with improvement of hwpbxeicX50.5 Hyperlipidemia, unspecifiedNew Labs: Comp Metabolic-ALL Lab CompaniLipid Panel-ALL Lab CompaniesComments:Goal LDL is <130, HDL >40, Triglycerides <200 defers medication and prefers to work on low fat diet and exercise yopdmrV30.9 Obesity, unspecifiedComments: Counseled on heart healthy diet such as Mediterranean diet. Eat protein and vegetables first then carbohydrates last. Get at least 150 minutes of moderate aerobic activity or 75 minutes of vigorous aerobic activity a week, or a combination of moderate and vigorous activity. General goal of 30 minutes of physical activity a day. take 1/2 tab mirtazapine to help with mood and see if curbs wt gaindeclines dieticianFollow up:3 moZ80.3 Family history of malignant neoplasm of breastComments:discussed genetic testing, pt defers for nowAllNew Medication:Mirtazapine 15 mgComments:~B_~U_Medication Management~b_~u _ Patient Understands medications she's taking? Yes No Are there Barriers to Adherence? Yes No Has the patient been asked about herbal supplements and therapies, and OTC meds? Yes No
--- OUTSIDE RECORDS SUMMARY | 2018-11-28 16:35 | XMS REPORT | Continuity of Care Document ---
:1965 External Reference #:[id number] Author Name Margret London Care Team Providers Name Role Phone Ban Crowder NP Primary Care Physician Unavailable Payers Type Date Identification Numbers Payment Provider Subscriber Policy Number: [id number] [employer] Number: [id number] [address] PayID: [id number] [place] [address] Advance Directives Description No Information Available Problems Date Description Provider Status Onset: 02/26/2018 Migraine with aura Leeann Cherry M.D. 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 Family History Date Family Member(s) Problem(s) Comments General Diabetes General Cancer General Stroke General Migraine Father Migraine Father Chronic Obstructive Pulmonary Disease (COPD) in 80s Mother Diabetes Siblings 1 breast cancer Social History Type Date Description Comments Sex Unknown Marital Status Lives With Occupation [facility] Tobacco Use Start: Unknown Never Smoked Cigarettes Smoking Status Reviewed: 11/20/18 Never Smoked Cigarettes ETOH Use Denies alcohol use Tobacco Use Start: Unknown Patient has never smoked Recreational Drug Use Denies Drug Use Exercise Type/Frequency Does not exercise Allergies, Adverse Reactions, Alerts Description No Known Drug Allergies Medications Medication Date Status Form Strength Qnty SIG Indications Ordering Provider Topiramate 10/15/ Active Tablets 200mg 90tabs 1 by mouth G43.919 Leeann Harvey every [place], night at M.D. bedtime Ibuprofen 08/21/ Active Tablets 800mg 60tabs 1 tab po q Dior Steven 2012 6h Otto Worthy Metformin HCL / Active Tablets 500mg 60tabs 1 po qd Unknown 0000 Citalopram / Active Tablets 20mg 90tabs 1 po qd Unknown Hydrobromide 0000 Relpax / Active Tablets 40mg 36tabs 1 by mouth Dior MHakan at onset Zaynab of Arnaldo.D. headache. may repeat in two hours, not to exceed 2 days a week. Advil / Active Tablets 200mg 4 by mouth Unknown 0000 prn headache Magnesium Oxide / Active Tablets 500mg take 1 by Unknown 0000 mouth aday Janumet / Active Tablets 50-500mg 1 by mouth Unknown 0000 a day Triamcinolone / Active Cream 0.1% apply once Unknown Acetonide 0000 daily Mirtazapine / Active Tablets 15mg take one Unknown 0000 tablet by mouth at bedtime Topiramate 09/20/ Hx Tablets 25mg 120tab take 1 by G43.919 Leeann 2017 - s mouth at [facility], 10/15/ night x 7 M.D. 2018 days, then increase by 1 tablet every 7 days until you are taking 4 tabs , take with 100mg tab. Verapamil HCL 05/14/ Hx Caps ER 120mg 30caps 1 by mouth Leeann ER 2017 - 24HR at bedtime [facility], 09/19/ M.D. 2018 Topamax 10/29/ Hx Tablets 100mg 90tabs 1 tab by Leeann 2017 - mouth [place], 10/14/ every M.D. 2018 night at bedtime Diclofenac 09/19/ Hx Gel 1% 100gm apply 4 Jia Sodium 2017 - times Leal, 02/19/ daily as M.D. 2018 needed for pain Topiramate 12/11/ Hx Tablets 100mg 90tabs 1 po QHS Dior Harris 2013 - Zaynab, 12/11/ Otto 2013 Topiramate 12/11/ Hx Tablets 100mg 120tab Take One Dior Harris 2013 - s To Two Zaynab 09/17/ Tablets By Otto 2016 Mouth Twice Daily as Directed Amitriptyline 08/21/ Hx Tablets 50mg 180tab Take Two Dior Harris HCL 2012 - s Tablets By Zaynab, 02/19/ Mouth Once M.D. 2017 Daily Topiramate 05/27/ Hx Tablets 25mg 120tab 2-4 tabs Dior Arnaldo. 2012 - by mouth Zaynab, 12/11/ every day M.Jona 2013 at bedtime as directed Amitriptyline 02/20/ Hx Tablets 25mg 270tab take two Dior WOOTEN 2012 - to three Zaynab, 08/21/ tablets by M.Jona 2012 mouth at bedtime Pravastatin / Hx Tablets 40mg 30tabs 1 tablet Unknown Sodium 0000 - po daily 2012 Fish Oil / Hx Capsules 1000mg 60caps 1 cap po Unknown Burp-Less 0000 - daily 2012 Amoxicillin / Hx Tablets 500mg 30tabs 1 po daily Unknown 0000 - 2013 Janumet / Hx Tablets 50-500mg 1 by mouth Unknown 0000 - twice a 2006 Zolpidem / Hx Tablets 10mg 1 tab by Unknown Tartrate 0000 - mouth 2018 night at bedtime as needed Immunizations Description No Information Available Vital Signs Date Vital Result Comment 11/20/2018 10:23am Height 68 inches 5'8" Weight 229.50 lb Heart Rate 86 /min BP Systolic Sitting 118 mmHg Rue reg cuff BP Diastolic Sitting 72 mmHg Rue reg cuff Respiratory Rate 20 /min O2 % BldC Oximetry 97 % On Ra BMI (Body Mass Index) 34.9 kg/m2 09/20/2018 9:12am Height 68 inches 5'8" Weight 207.00 lb Heart Rate 64 /min BP Systolic 100 mmHg BP Diastolic 70 mmHg Respiratory Rate 14 /min BMI (Body Mass Index) 31.5 kg/m2 08/21/2018 1:57pm Height 68 inches 5'8" Weight 203.00 lb Heart Rate 60 /min BP Systolic Sitting 110 mmHg Lue large cuff BP Diastolic Sitting 70 mmHg Lue large cuff Respiratory Rate 12 /min O2 % BldC Oximetry 98 % BMI (Body Mass Index) 30.9 kg/m2 06/11/2018 10:29am Height 68 inches 5'8" Weight 200.00 lb Heart Rate 74 /min BP Systolic Sitting 100 mmHg Rue large cuff BP Diastolic Sitting 70 mmHg Rue large cuff Respiratory Rate 20 /min O2 % BldC Oximetry 96 % On Ra BMI (Body Mass Index) 30.4 kg/m2 05/24/2018 8:02am Height 68 inches 5'8" Weight 200.00 lb Heart Rate 88 /min BP Systolic 100 mmHg BP Diastolic 70 mmHg Respiratory Rate 16 /min BMI (Body Mass Index) 30.4 kg/m2 03/27/2018 7:40am Height 68 inches 5'8" Weight 202.00 lb Heart Rate 84 /min BP Systolic Sitting 100 mmHg BP Diastolic Sitting 66 mmHg Respiratory Rate 14 /min O2 % BldC Oximetry 99 % BMI (Body Mass Index) 30.7 kg/m2 Neck Circumference in inches 15.25 02/26/2018 4:31pm Height 68 inches 5'8" Weight 198.00 lb Heart Rate 78 /min BP Systolic Sitting 126 mmHg BP Diastolic Sitting 70 mmHg Respiratory Rate 16 /min Pain Level 0 O2 % BldC Oximetry 99 % ra BMI (Body Mass Index) 30.1 kg/m2 09/19/2017 3:20pm Height 68 inches 5'8" Weight 219.00 lb Heart Rate 76 /min BP Systolic 116 mmHg BP Diastolic 71 mmHg Body Temperature 97.2 F BMI (Body Mass Index) 33.3 kg/m2 06/28/2017 9:53am Height 69 inches 5'9" Weight 225.00 lb Heart Rate 84 /min BP Systolic Sitting 112 mmHg BP Diastolic Sitting 80 mmHg Respiratory Rate 14 /min BMI (Body Mass Index) 33.2 kg/m2 01/12/2015 9:50am Height 69 inches 5'9" Weight 217.00 lb Heart Rate 72 /min BP Systolic Sitting 108 mmHg BP Diastolic Sitting 70 mmHg Respiratory Rate 16 /min BMI (Body Mass Index) 32.0 kg/m2 08/06/2014 9:46am Height 69 inches 5'9" Weight 235.00 lb Heart Rate 76 /min BP Systolic Sitting 110 mmHg BP Diastolic Sitting 60 mmHg Respiratory Rate 16 /min BMI (Body Mass Index) 34.7 kg/m2 12/25/2013 11:00am Heart Rate 85 /min Irregular BP Systolic Sitting 114 mmHg BP Diastolic Sitting 86 mmHg Respiratory Rate 16 /min 08/21/2013 11:28am Heart Rate 88 /min BP Systolic Sitting 112 mmHg BP Diastolic Sitting 82 mmHg Respiratory Rate 16 /min 05/27/2013 8:27am BP Systolic Sitting 116 mmHg BP Diastolic Sitting 78 mmHg Respiratory Rate 18 /min 02/20/2013 11:08am Weight 220.00 lb Heart Rate 82 /min BP Systolic Sitting 118 mmHg BP Diastolic Sitting 80 mmHg Respiratory Rate 16 /min Results Test Date Facility Test Result H/L Range Note Xray 04/18/2018 [facility] MRI Cervical Spine Wo <pending> [address] [place] [address] [phone] Procedures Date Code Description Status 04/10/2018 27325 Nerve Conduction 11-12 Studies Completed 04/10/2018 77320 Needle Electromyography Complete, Five Or More Muscles Completed Studied 04/02/2018 07181 Polysomnography Sleep Staging 4+ Parameters Completed Encounters Type Date Location Provider Dx Diagnosis Office Visit 09/20/2018 [facility] Leeann Cherry, G43.919 Migraine , unsp, 9:00a [facility] intractable, without status migrainosus G56.03 Carpal tunnel syndrome, bilateral upper limbs G47.00 Insomnia, unspecified Office Visit 08/21/2018 [facility] G47.33 Obstructive sleep 2:15p [facility] Chin RN, apnea (adult) [facility] ONOFRE-BC (pediatric) G47.09 Other insomnia Z68.30 Body mass index (BMI) 30.0-30.9, adult Office Visit 06/11/2018 [facility] G47.33 Obstructive sleep 10:30a [facility] Chin RN, apnea (adult) I[facility] ONOFRE-BC (pediatric) G47.09 Other insomnia Z68.30 Body mass index (BMI) 30.0-30.9, adult Office Visit 05/24/2018 8:00a [facility] Leeann Cherry G56.03 Carpal tunnel [facility] syndrome, bilateral upper limbs M50.122 Cervical disc disorder at C5-C6 level with radiculopathy G47.33 Obstructive sleep apnea (adult) (pediatric) G43.109 Migraine with aura, not intractable, w/o status migrainosus Office Visit 03/27/2018 8:00a [facility] Tasneem De Jesus, R06.83 Snoring [facility] ORTIZ G47.00 Insomnia, unspecified R05 Cough E66.09 Other obesity due to excess calories Z68.30 Body mass index (BMI) 30.0-30.9, adult Office Visit 02/26/2018 [place] G43.109 Migraine with 4:15p Neurologic [facility] Cherry aura, not Land Developer intractable, w/o status migrainosus R20.2 Paresthesia of skin R06.83 Snoring Office Visit 09/19/2017 [facility] Jia M65.4 Radial styloid 3:00p [facility] Leal tenosynovitis [Crum] M18.0 Bilateral primary osteoarth of first carpometacarp joints Office Visit 06/28/2017 [place] G43.009 Migraine w/o aura, 9:45a Neurologic Otto Worthy not intractable, [facility] w/o status migrainosus Office Visit 01/12/2015 [place] 346.10 Migraine Common 9:45a Pratibha Worthy M.D. W/O Intractable [facility] W/O Status Migrainosus Office Visit 08/06/2014 [place] 346.10 Migraine Common 9:45a Pratibha Worthy M.D. W/O Intractable [facility] W/O Status Migrainosus Office Visit 12/25/2013 [place] 346.10 Migraine Common 11:00a Pratibha Worthy M.D. W/O Intractable [facility] W/O Status Migrainosus Office Visit 08/21/2013 [place] 346.90 Migraine Unspec 11:15a Pratibha Worthy M.D. W/O Intractable [facility] W/O Status Migrainosus Office Visit 05/27/2013 [place] 346.90 Migraine Unspec 8:30a Pratibha Worthy M.D. W/O Intractable [facility] W/O Status Migrainosus Office Visit 02/20/2013 [place] 346.90 Migraine Unspec 11:00a Pratibha Worthy M.D. W/O Intractable [facility] W/O Status Migrainosus Plan of Treatment Future Appointment(s):01/03/2019 2:30 pm - Leeann Cherry M.D. at [place] [facility]11/20/2018 - Starr Chin DNP, RN, BULLET SLUGS INSPECTOR-BCG47.33 Obstructive sleep apnea (adult) (pediatric)Comments:04/02/18 NPSG AHI 19.5/hour , lynsey oxygen 91%, wt 202 # On CPAP AHI 0.9/hourFollow up:1 yearRecommendations:Continue PAP device, Benefitting and compliant with treatment. Cleaning Wipe off mask daily (baby wipe-no scent, or warm water) Clean mask, tubing, filter, and water chamber weekly in mild no scent dish soap and water. Hang to dry. If you have any sleepiness while driving you MUST avoid operating a vehicle or machinery. If you have difficulty with your equipment, or need to replace your mask or hoses, please contact your homecare agency. A weight change of 20 pounds or more may have an effect onyour equipment ; if you are experiencing problems please call for an appointment. If you have any further questions, please call the [facility] at .Z23.07 Other insomniaRecommendations:Stable on medication, most days sleeping 8 PM to 230 AM.Z68.34 Body mass index (BMI) 34.0-34.9, adultRecommendations:Resume weight loss efforts, add exercise, 15 minutes of brisk walking daily. Advance exercise as youcan.
--- NOTE | 2018-11-28 17:10 | UC ---
General HPI - HPI Summary HPI Summary: 53-year-old woman comes in to clinic today after sustaining a fall on November at work. Patient slipped down some icy steps. She struck her head, her neck hurts, bilateral ribs hurt, low back hurts, left hip and tailbone hurt. Patient denies loss of consciousness or confusion or vision changes or difficulty with speech or focal weakness or numbness. Her neck pain is anterior neck pain which is worse with turning and twisting and movement. Patient's lower ribs on both sides hurt when she takes deep breath or coughs. Does not feel short of breath at rest. Has low back pain in the middle which is worse with bending or twisting or turning. Tailbone hurts and also her left hip hurts. His been able to ambulate. Eating and drinking is normal bowels and urine have been normal. Has not seen any blood in her urine. She took some ibuprofen with some relief in the pain. Patient is not on a blood thinner. - History of Current Complaint Chief Complaint: UCBackPain Stated Complaint: BACK AND BOTTOM INJURY Time Seen by Provider: 11/28/18 16:48 Hx Last Menstrual Period: 10/04/17 Pain Intensity: 8 - Allergy/Home Medications Allergies/Adverse Reactions: Allergies Allergy/AdvReac Type Severity Reaction Status Date / Time No Known Allergies Allergy Verified 11/28/18 16:42 PMH/Surg Hx/FS Hx/Imm Hx Previously Healthy: Yes Endocrine History: Diabetes - Surgical History Surgical History: Yes Surgery Procedure, Year, and Place: TUBAL LIGATION 2004 TIA. LEFT BREAST BIOPSPY X 2 BENIGN 2015, 12/2017 TIA. CARPAL TUNNEL RIGHT WRIST. D&C. CERVICAL ABLASION - Family History Known Family History: Positive: Diabetes Family History: Breast cancer - Social History Alcohol Use: None Substance Use Type: None Smoking Status (MU): Never Smoked Tobacco Have You Smoked in the Last Year: No - Immunization History Most Recent Influenza Vaccination: 08/2017 Review of Systems All Other Systems Reviewed And Are Negative: Yes Constitutional: Positive: Negative Skin: Positive: Bruising - on tail bone area Eyes: Positive: Negative ENT: Positive: Negative Respiratory: Positive: Negative Cardiovascular: Positive: Chest Pain Gastrointestinal: Positive: Negative Genitourinary: Positive: Negative. Negative: Hematuria Motor: Positive: Negative Neurovascular: Positive: Negative Musculoskeletal: Positive: Other: - see hpi Neurological: Positive: Negative Psychological: Positive: Negative Is Patient Immunocompromised?: No Physical Exam Triage Information Reviewed: Yes Appearance: Well-Appearing, Well-Nourished, Pain Distress - mild Vital Signs: Initial Vital Signs Temp 98.7 F 11/28/18 16:38 Pulse 95 11/28/18 16:38 Resp 16 11/28/18 16:38 BP 115/84 11/28/18 16:38 Pulse Ox 99 11/28/18 16:38 Vital Signs Reviewed: Yes Eye Exam: Normal Eyes: Positive: Conjunctiva Clear ENT: Positive: Normal ENT inspection, TMs normal. Negative: Nasal drainage Neck: Positive: Supple, Other: - tenderness to palpation anterior lateral. Respiratory: Positive: Lungs clear, Normal breath sounds, No respiratory distress, Other: - tenderness to palpation b/l lower ribs Cardiovascular: Positive: RRR Abdomen Description: Positive: Nontender, Soft. Negative: CVA Tenderness (R), CVA Tenderness (L) Bowel Sounds: Positive: Present Musculoskeletal: Positive: Other: - tenderness to palpation low back and sacral area and left hip. Left hip and all extremities have full range of motion and strength is 5 out of 5 throughout no sensation deficit. Neurological Exam: Normal Neurological: Positive: Alert, Muscle Tone Normal Psychological Exam: Normal Psychological: Positive: Normal Response To Family, Age Appropriate Behavior Skin Exam: Normal Course/Dx - Course Course Of Treatment: Order Information: LUMBARSACRAL 4+ VWS. Accession Number: [id number]. CPT: 57933. Indication: Back pain post fall November 26, 2018. Comparison: May 10, 2010. Technique: AP, lateral, and oblique views lumbar sacral spine. Report: Negative for vertebral body fracture or evidence for spondylolysis. Grade 1. degenerative L4-L5 anterolisthesis. Moderately severe L4-L5 and L5-S1 disc space narrowing. and advanced facet joint osteoarthritis at both levels. Unremarkable paraspinal soft. tissue contours. IMPRESSION: #. Negative for lumbar sacral spine fracture. #. Interval worsening of degenerative spondylosis and facet joint osteoarthritis. Associated grade 1 degenerative L4-L5 anterolisthesis. . <Electronically signed by Reji Rubio MD in OV> 11/28/18 1806. Order Information: RIBS BI W/PA CHEST MIN 4 VWS. Accession Number: [id number]. CPT: 86124. Indication: Lateral rib pain post fall November 26, 2018. Comparison: March 27, 2018 chest radiograph. Technique: Dual energy PA chest and bilateral rib series. Report: Negative for RIGHT or LEFT rib fracture. Clear lungs and pleural spaces. Negative. for pneumothorax. The heart, pulmonary vasculature, and mediastinal contours are. unremarkable. IMPRESSION: #. Negative exam. . <Electronically signed by Reji Rubio MD in OV> 11/28/18 1758. Order Information: HIP LEFT 2 VIEWS AND PELVIS. Accession Number: [id number]. CPT: 85478. Indication: LEFT hip pain post fall November 26, 2018. Comparison: May 23, 2007. Technique: Standing AP pelvis and AP and frog-leg lateral views LEFT hip. Report: Normally located LEFT hip. No evidence for LEFT hip or pelvic fracture or pelvic. joint diastases. Both hips are remarkable for mild osteophytic lipping without significant. joint space narrowing. Unremarkable soft tissue contours accounting for body habitus. IMPRESSION: #. No radiographic evidence for LEFT hip fracture. Mild osteoarthritis. . <Electronically signed by Reji Rubio MD in OV> 11/28/18 1800. Order Information: CT SPINE CERVICAL W/O. Accession Number: [id number]. CPT: 95280. INDICATION: Head and neck pain post fall November 26, 2018. COMPARISON: April 18, 2018 MRI. TECHNIQUE: Multidetector CT images foramen magnum to lung apices without contrast. Multiplanar reformation. REPORT: Normal vertebral alignment accounting for exam positioning without. spondylolisthesis or subluxation at any level. Negative for cervical vertebral body or. posterior element fracture. Negative for paravertebral hematoma. At C5-C6 there is moderate disc space narrowing and moderate dorsal disc osteophyte. complex with resulting mild to moderate acquired central canal stenosis without. significant change compared with the previous exam. Uncinate process spurring results in. moderate LEFT foraminal stenosis at C5-C6 without significant change. IMPRESSION: #. No CT evidence for traumatic cervical spine injury. # . No significant change in C5-C6 degenerative spondylosis and uncinate process spurring. with resulting mild to moderate central canal and moderate LEFT foraminal stenosis. _. <Electronically signed by Reji Rubio MD in OV> 11/28/18 5809. Order Information: CT BRAIN WO. Accession Number: [id number]. CPT: 81783. Indication: Head and neck pain post fall November 26, 2018. Comparison: December 01, 2005 CT. Technique: Noncontrast CT vertex of skull through foramen magnum. Report: The sulci, ventricles, and basal cisterns are normal for age. Drummond matter white. matter differentiation is preserved without evidence for edema. No intra or extra axial. hemorrhage is detected. Unremarkable visualized orbital contents. Negative for calvarial. or skull base fracture. Negative for scalp hematoma. The visualized paranasal sinuses and. mastoid air spaces are clear. IMPRESSION: #. No CT evidence for traumatic brain injury. Negative exam. . < Electronically signed by Reji Rubio MD in OV> 11/28/18 0559. I discussed the x-ray reports with the patient. All the x-rays were read by the radiologist with the exception of the coccyx x-rays. I do not see any acute fracture on the coccyx x-ray final radiologist reading is pending. The overall plan is ibuprofen for the neck rib low back left hip and coccyx pain. We discussed using a donut pillow for the coccyx pain. The patient follow-up occupational medicine and be out of work until cleared by medical provider. - Diagnoses Provider Diagnosis: Head injury, Cervical strain, acute, Bilateral contusion of ribs, Low back strain, Contusion of left hip, Coccyx contusion Discharge - Sign-Out/Discharge Documenting (check all that apply): Patient Departure All imaging exams completed and their final reports reviewed: No - Discharge Plan Condition: Stable Disposition: HOME Patient Education Materials: Cervical Strain (ED), Coccyx Injury (ED), Head Injury (ED), Low Back Strain (ED), Hip Contusion (ED), Rib Contusion (ED) Forms: *Work Release Referrals: Ara Austin MD [Primary Care Provider] - Additional Instructions: FOLLOW UP WITH DR WOOD, OCCUPATIONAL MEDICINE. GET RECHECKED FOR ANY WORSENING OF YOUR CONDITION OR QUESTIONS OR CONCERNS. THE RADIOLOGIST READING FOR YOUR TAIL BONE X-RAY WILL BE DONE TOMORROW. IF THERE IS ANY CHANGE IN THE X-RAY, WE WILL CALL YOU WITH THE FINAL RESULTS. - Billing Disposition and Condition Condition: STABLE Disposition: Home
[2018-11-28 18:48] VITALS: BP 112/82
--- NOTE | 2018-11-29 10:43 | UC ---
- EKG/XRAY/CT Xray Comments: wet read correct Course/Dx - Diagnoses Provider Diagnoses: Head injury, Cervical strain, acute, Bilateral contusion of ribs, Low back strain, Contusion of left hip, Coccyx contusion Discharge - Sign-Out/Discharge Documenting (check all that apply): Post-Discharge Follow Up All imaging exams completed and their final reports reviewed: Yes - Discharge Plan Condition: Stable Disposition: HOME Patient Education Materials: Cervical Strain (ED), Coccyx Injury (ED), Head Injury (ED), Low Back Strain (ED), Hip Contusion (ED), Rib Contusion (ED) Forms: *Work Release Referrals: Ara Austin MD [Primary Care Provider] - Additional Instructions: FOLLOW UP WITH DR WOOD, OCCUPATIONAL MEDICINE. GET RECHECKED FOR ANY WORSENING OF YOUR CONDITION OR QUESTIONS OR CONCERNS. THE RADIOLOGIST READING FOR YOUR TAIL BONE X-RAY WILL BE DONE TOMORROW. IF THERE IS ANY CHANGE IN THE X-RAY, WE WILL CALL YOU WITH THE FINAL RESULTS. - Billing Disposition and Condition Condition: STABLE Disposition: Home
== END 2018-11-28 19:11 | disposition home or self-care (01) ==
LOC: UCEAST 16:30
DX: S09.90XA Unspecified injury of head, initial encounter (principal); S16.1XXA Strain of muscle, fascia and tendon at neck level, initial encounter; S20.222A Contusion of left back wall of thorax, initial encounter; S20.221A Contusion of right back wall of thorax, initial encounter; S39.012A Strain of muscle, fascia and tendon of lower back, initial encounter; S70.02XA Contusion of left hip, initial encounter; S30.0XXA Contusion of lower back and pelvis, initial encounter; W00.1XXA Fall from stairs and steps due to ice and snow, initial encounter; Y92.89 Other specified places as the place of occurrence of the external cause; Y99.0 Civilian activity done for income or pay; E11.9 Type 2 diabetes mellitus without complications
CPT/HCPCS: 70450; 71111; 72110; 72125; 72220; 99212; G0463

== ENCOUNTER 2019-08-22 08:02 | Day surgery (SDC) | payer OTHER ==
--- NOTE | 2019-08-13 13:08 | HP ---
PREOPERATIVE HISTORY AND PHYSICAL: DATE OF ADMISSION/SURGERY: 08/22/19 DATE OF OFFICE VISIT/ENCOUNTER: 07/31/19 ATTENDING SURGEON: Jia Leal MD * (DICTATED BY KEVIN PÉREZ) PROCEDURE: Left wrist carpal tunnel release. HISTORY OF PRESENT ILLNESS: This is a 54-year-old female who complains of tingling, numbness, and pain in her left wrist that goes into her hand. It gets worse with working, reading, driving, and lesly. She feels that the pain at times radiates up her forearm and the tingling and the numbness in her left hand wakes her up at night. She has to shake her hand to try to relieve these symptoms. She has tried wearing a brace which was not helpful. She has also tried chiropractic treatment in the past that did not help. She is employed at [employer] in [employer]. She has had a right carpal tunnel release in the past. She denies any specific injury to her left wrist or hand. She would like to proceed with surgical intervention at this time. PAST MEDICAL HISTORY: 1. Diabetes. 2. History of skin cancer - mycosis fungoides. 3. Depression. 4. Sleep apnea. PAST SURGICAL HISTORY: 1. Right carpal tunnel release. 2. D and C. CURRENT MEDICATIONS: 1. Citalopram hydrobromide 20 mg daily. 2. Janumet 50/500 mg daily. 3. Metformin HCl 500 mg daily. 4. Relpax 40 mg 1 tab at onset of headache. 5. Topiramate 200 mg daily. ALLERGIES: No known drug allergies. FAMILY MEDICAL HISTORY: Stroke, breast cancer, skin cancer, COPD, colon cancer. SOCIAL HISTORY: The patient is employed at [employer] in [employer]. She denies tobacco use, reactional drug use and does not drink alcohol. REVIEW OF SYSTEMS: Negative for general, cephalic, cardiovascular, respiratory , GI, , other musculoskeletal, integumentary, endocrine, neurologic, and hematologic symptoms. Infectious Disease: Negative for MRSA, hepatitis C, HIV. PHYSICAL EXAMINATION GENERAL: A well-developed, well-nourished 54-year-old female, in no acute distress. VITAL SIGNS: Height 5 feet 8 inches, weight 208 pounds. Blood pressure 118/78 , pulse rate 66. HEENT: Normocephalic, atraumatic. Pupils are equal, round, and reactive to light and accommodation. Extraocular movements are intact. Throat is clear. NECK: Supple. No palpable lymph nodes. PULMONARY: Lungs are clear to auscultation bilaterally. No wheezes, rales, or rhonchi. CARDIOVASCULAR: Regular rate and rhythm. S1, S2. No murmurs, rubs, or gallops. No edema. ABDOMEN: Positive bowel sounds. Soft and nontender. NEUROLOGICAL: Alert and oriented x3. Cranial nerves II through XII are intact. Sensation is intact to light touch. MUSCULOSKELETAL: On exam of her left upper extremity, she has a positive Tinel sign at the median nerve at the wrist. Negative Tinel sign at the ulnar nerve at the elbow. There is no visible thenar wasting, but she does have weakness with thumb abduction. She has good motion in her fingers and her wrist. IMPRESSION: Left wrist carpal tunnel syndrome. PLAN: The patient is scheduled to undergo a left wrist carpal tunnel release with Dr. Leal on 08/22/19. She will return to the office 10 days postop for followup and suture removal. Her prescription for Tylenol with Codeine was e- scribed to the patient's pharmacy for postoperative pain management. KEVIN PÉREZ [id number]/[facility] #: [id number] MTDD
[~2019-08-22 08:02] MED LIST changes: -Acetaminophen TAB* 325 MG PO PRN; -Buffered Lidocaine 0.9% SYRIN* 5 ML/SYR SYRINGE ONE; +Buffered Lidocaine 1% SYRIN* 1 ML/SYRINGE INTRADERM ONE; -Chloroprocaine 2%* 20 ML VIAL ONE; +Dexamethasone TAB* 4 MG ONE; +Dexamethasone TAB* 4 MG PO ONE; +DiMENhydriNATE IV* 50 MG/ML VIAL IV PUSH PRN; +Famotidine IV* 10 MG/ML 2 ML (20 mg) IV ONE; +Famotidine IV* 10 MG/ML 2 ML (20 mg) ONE; -HYDROmorphone INJ* 1 MG/ML CARPUJECT SYRINGE IV PRN; -Ketorolac INJ* 30 MG/ML 1 ML VIAL ONE; +Lactated Ringers 1000 ML Bag* 1,000 ML IV SCH; -Lidocaine 2% PF * 5 ML VIAL ONE; -Midazolam* 1 MG/ML 2 ML VIAL (2 MG) ONE; -Ondansetron INJ* 2 MG/ML VIAL IV PRN; -Ondansetron INJ* 2 MG/ML VIAL ONE; +Ondansetron ODT TAB* 4 MG ONE; +Ondansetron ODT TAB* 4 MG PO ONE; -Propofol* 500 MG/50 ML BTL ONE; -Scopolamine 1.5 mg* PATCH TRANSDERM PRN; -Scopolamine PATCH Remove* 1 NOTE MISC PATCH OFF ONE; -diPHENhydraMINE IV* 50 MG/ML 1 ml VIAL (BENADRYL) IV PRN; -fentaNYL* 50 MCG/ML 2 ML VIAL (100 MCG VIAL) ONE; -oxyCODONE TAB* 5 MG TAB PO PRN
[2019-08-22] MEDS ORDERED: Lidocaine 1% INJ* 10 MG/ML 30 ML SDV ONE (09:19)
[2019-08-22] MEDS ORDERED: fentaNYL* 50 MCG/ML 2 ML VIAL (100 MCG VIAL) ONE (09:35)
[2019-08-22] MEDS ORDERED: Midazolam* 1 MG/ML 5 ML VIAL (5 MG) ONE (09:35)
[2019-08-22] MEDS ORDERED: Ketorolac INJ* 30 MG/ML 1 ML VIAL ONE (09:46)
[2019-08-22] MEDS ORDERED: Propofol* 10 MG/ML 20 ML BTL ONE (09:46)
[2019-08-22] MEDS ORDERED: Lidocaine 2% PF * 5 ML VIAL ONE (09:46)
[2019-08-22 10:07] VITALS: BP 93/48
--- NOTE | 2019-08-22 13:43 | OP ---
CC: Dr. Leal OPERATIVE REPORT: DATE OF OPERATION: 08/22/19 DATE OF : 63 SURGEON: Jia Leal MD HEAT CURER: KEVIN Sánchez ANESTHESIA: Local MAC. PRE-OP DIAGNOSIS: Left carpal tunnel syndrome. POST-OP DIAGNOSIS: Left carpal tunnel syndrome. OPERATIVE PROCEDURE: Left carpal tunnel release. ESTIMATED BLOOD LOSS: Zero. TOURNIQUET TIME: Approximately 10 minutes. INDICATION FOR PROCEDURE: Yessi is a 54-year-old woman with numbness and tingling in the median nerve distribution of her left hand. She presents for left carpal tunnel release. DESCRIPTION OF PROCEDURE: The patient was brought to the operating room and was given a sedation ane sthetic and a local infiltration of 10 cc of 1% plain lidocaine in the palm of her left hand. The sk in of her left hand and forearm was prepped and draped in the usual sterile fashion. The hand and fo rearm were exsanguinated and the tourniquet elevated to 250 mmHg. A longitudinal incision was made i n the palm in line with the ring finger. We dissected through the subcutaneous tissue down to the tr ansverse carpal ligament. The ligament was divided sharply with the knife and then more proximally w ith the scissors. The nerve was dissected free from the surrounding tissue and there was an area of moderate compression in the mid portion of the ligament. The wound was irrigated and the skin edges were reapproximated with 4-0 nylon suture. The wound was dressed with Xeroform, 4x4, Webril, and an Mayank wrap. The patient tolerated the procedure well and was brought to the recovery room in good cond ition. [id number]/[facility] #: [id number]
== END 2019-08-22 10:33 | disposition home or self-care (01) ==
LOC: OREAST 08:02
PROVIDERS: ATTEND Orthopaedic Surgery
DX: G56.02 Carpal tunnel syndrome, left upper limb (principal); E11.9 Type 2 diabetes mellitus without complications; Z79.84 Long term (current) use of oral hypoglycemic drugs; Z85.828 Personal history of other malignant neoplasm of skin; G47.30 Sleep apnea, unspecified
CPT/HCPCS: A9270-GY; J1885; J2250; J2704; J3010; J8540